=== PATIENT | male | born 1960 | race Caucasian/White ===

== ENCOUNTER 2020-10-10 11:32 | Outpatient (REF) | payer OTHER, SELFPAY ==
--- NOTE | 2020-10-10 11:36 | XR_ITS ---
EXAMINATION: XR LUMBOSACRAL SPINE CLINICAL INFORMATION: Back pain COMPARISON: None TECHNIQUE: Three views of the lumbosacral spine. FINDINGS: Bone alignment is normal. No fracture or dislocation is seen. There is mild degenerative disc disease at L3-L4. Disc spaces are otherwise normal. There is lower lumbar spine facet arthritis. There is evidence of atherosclerotic disease. The aorta appears slightly increased in AP dimension measuring 3.4 cm not accounting for magnification. XR/XR lumbar spine 2-3V IMPRESSION: Mild degenerative changes. Atherosclerotic disease and question ectasia of the abdominal aorta. This could be more accurately sized with ultrasound.
== END 2020-10-10 11:33 | disposition home or self-care (01) ==
LOC: HO.XRAY 11:32
PROVIDERS: PCP Physician Assistant; Visit Provider Internal Medicine
DX: M54.9 Dorsalgia, unspecified (principal)
CPT/HCPCS: 72100

== ENCOUNTER → 2022-05-06 10:47 | Outpatient (BNVA) | payer OTHER, SELFPAY | PROVIDERS: PCP Physician Assistant; Referring Provider Physician Assistant; Visit Provider Internal Medicine Cardiovascular Disease | DX: R42 Dizziness and giddiness (principal); I25.10 Atherosclerotic heart disease of native coronary artery without angina pectoris | CPT/HCPCS: 93005 ==

== ENCOUNTER → 2022-05-18 07:49 | Outpatient (REF) | payer OTHER, SELFPAY ==
--- NOTE | ~2022-05-18 | NM_ITS ---
Exercise Myocardial perfusion study Indication: Chest pain with prior coronary artery disease to evaluate for myocardial ischemia Technique: The patient was brought in for an exercise perfusion study on 05/18/2022 . Patient performed exercise as per Renard protocol and was injected 35 mCi of sestamibi was given intravenously one target HR was achieved. Images were obtained using the SPECT gamma camera interlaced with the gating device. Images were obtained in supine position. Resting perfusion study was performed on 05/19/2022. Patient was administered 35 mCi of sestamibi intravenously at rest. Images were then obtained in supine position. Is obtained with and without CT attenuation. Total DLP 94 mGy-cm. Images were processed with the software and compared side to side in short axis, horizontal long axis and vertical long axis views. Findings: The stress perfusion study showed non attenuated images show mildly reduced uptake in the basal inferior and inferoseptal wall of the LV myocardium. Remainder of the LV myocardium is normally perfused. Attenuation corrected images show minimal thinning of the apex of the LV myocardium. Remainder of the LV myocardium normally perfused. The gated study shows normal LV systolic function with calculated LVEF of 63%. LV cavity is normal in size. The gated study shows normal systolic wall thickening and contraction of all segments. There is no transient ischemic dilation. Resting study shows no change in perfusion pattern compared to stress perfusion study. Gating at rest reveals normal systolic wall motion with ejection fraction at 70%. The findings are consistent with normal myocardial perfusion. NM/NM cardiolite stress test Impression: 1. Normal myocardial perfusion 2. Gated LVEF is 63% 3. Transient ischemic dilatation not present Stress EKG is negative for ischemia
--- NOTE | 2022-05-18 07:52 | CA_ITS ---
Acquisition Time: 2022-05-18 08:23:00 Total Exercise Time: 00:09:15 Test Indications: Lightheadedness Medications: ALBUTEROL ASA ATORVASTATIN LOSARTAN Protocol: FABRICIO Max HR: 142 BPM 90% of Pred: 157 BPM Max BP: 202/068 mmHG Max Work Load: 10.5 METS Exercise stress test with exercise 9 min 15 sec of Fabricio protocol, without anginal symptoms, without arrythmia, with hypertensive response to exercise with max BP 202/68, without EKG changes meeting criteria for ischemia, with ST/ T wave abn V1-V2 consistent with RBBB. Nuclear images pending. Test reviewed with Dr Silvestre. Referred By: Isale Torres Overread By: JACK DELAROSA
== END ==
LOC: HO.CARD 07:49
PROVIDERS: Visit Provider Internal Medicine Cardiovascular Disease
DX: R42 Dizziness and giddiness (principal); R07.9 Chest pain, unspecified
CPT/HCPCS: 78452; 93017; A9500

== ENCOUNTER → 2022-06-02 07:25 | Outpatient (REF) | payer OTHER, SELFPAY ==
--- NOTE | 2022-06-02 07:29 | CA_ITS ---
Transthoracic Echocardiogram Patient (Last, First, Middle): Jose A Guillen F Gender: Male Date of : 1960 Age: 62 Procedure Date: 06/02/2022 Procedure Type: Transthoracic Echocardiogram Location: OP Height: 187.96 cm Weight: 99.79 kg BSA: 2.26 m2 Heart Rate: bpm BP: 105 / 68 mmHg Chicken Boner: TO Referring MD: Isael Torres MD Clinical Trial Associate: Isael Torres MD Symptoms: R42 - Dizziness and giddiness Study Quality: Adequate ECG Rhythm: Sinus Conclusions: - 1. Normal LV systolic and diastolic function 2. At least mildly dilated left atrium 3. Normal cardiac valvular Doppler next 4. Mildly dilated ascending aorta at 4.1 cm 5. No pericardial effusion Findings Left Ventricle Normal left ventricular size, thickness, and systolic function. The visually estimated ejection fraction is between 60-65%. Spectral Doppler is indicative of a normal filling pattern. Wall Motion Rest Echo Findings The basal inferior segment is hypokinetic. All other scored wall segments showed normal motion. Right Ventricle Normal right ventricular cavity size and systolic function. Atria The left atrium is mildly dilated. There is lipomatous hypertrophy of the interatrial septum. There is no evidence of interatrial shunt. The right atrium is normal in size. Aortic Valve Normal aortic valve structure and function. There is no aortic valve stenosis. There is no aortic valve regurgitation. Mitral Valve Normal mitral valve structure and function. There is trace mitral valve regurgitation. There is no mitral valve stenosis. Pulmonic Valve The pulmonic valve is likely normal. Tricuspid Valve Normal tricuspid valve structure. There is trace tricuspid valve regurgitation. The right ventricular systolic pressure is normal. The right ventricular systolic pressure is 14 mmHg. Low right atrial pressure. There is no evidence of pulmonary hypertension. Great Vessels The pulmonary artery was not well visualized. There is mild dilatation of the ascending aorta measuring 4.10 cm. Venous The inferior vena cava is collapsed, consistent with reduced intravascular volume. Pericardium/Pleural There is no evidence of pericardial effusion. Prior Study Comparison Changes noted compared to prior study dated: 08/08/2013. Ascending aorta is mildly dilated on this study Measurements 2D Linear Measurements IVSd: 1.01 0.6-0.9/0.6-1.0 cm LVIDd: 4.80 3.9-5.3/4.2-5.9 cm LVIDd Index: 2.12 2.4-3.2/2.2-3.1 cm/m2 LVIDs: 3.01 2.0-3.6 cm LVPWd: 0.93 0.7-1.1 cm LA Diam: 4.40 2.7-3.8/3.0-4.0 cm LAIDs Index: 1.95 1.5-2.3 cm/m2 LV Mass: 203.27 67-162/88-224 g LV Mass Index: 89.94 43-95/49-115 g/m2 LVOT Diam: 2.60 3.0+(-)1.3 cm 2D Systolic Function EF 4C: 63.50 >55% EF 2C: 57.00 >55% EF BiP: 60.80 >55% Mitral Valve MV Pk E: 1.10 MV PK A: 0.74 MV Decel Time: 248.00 E/A: 1.50 E'Lateral: 10.80 E'Medial: 6.96 E/E' Med: 15.80 E/E' Lat: 10.20 PHT: 73.00 MVA PHT: 3.01 Decel Darke: 4.43 Aortic Valve AoV Pk Russ: 1.42 AoV Mn Russ: 0.89 AoV VTI: 0.31 AoV Pk Grad: 8.00 Aov Mn Grad: 4.00 ANIBAL Cont.VTI: 4.56 LVOT LVOT Pk Russ: 1.19 LVOT Mn Russ: 0.80 LVOT VTI: 0.27 LVOT Pk Grad: 6.00 LVOT Mn Grad: 3.00 LVOT Diam: 2.60 LVOT Area: 5.31 Diastolic Function MV Pk E: 1.10 MV Pk A: 0.74 E/A: 1.50 E'Medial: 6.96 E/E' Med: 15.80 E' Laterial: 10.80 E/E' Lat: 10.20 Right Ventricle TAPSE (mm): 23.40 TVS' Russ: 14.70 Tricuspid Valve TR Pk Russ: 1.64 TR Pk Grad: 11.00 RA Press: 3.00 RVSP: 14.00 Great Vessels Aorta Sinus of Valsalva: 4.19 2.0-3.[address] Ridge: 3.53 1.7-3.4 cm Ao Asc: 4.10 2.1-3.4 cm Updated in Other Vendor System with Status of Final Isael Torres MD electronically signed on 06/03/2022 5:56:31 PM with status of Final
== END ==
LOC: HO.CARD 07:25
PROVIDERS: Visit Provider Internal Medicine Cardiovascular Disease
DX: R42 Dizziness and giddiness (principal)
CPT/HCPCS: 93306

== ENCOUNTER 2022-07-16 09:11 | Outpatient (REF) | payer OTHER, SELFPAY ==
[2022-07-16 09:59] LABS: Urine Cytology See Pathology rpt
[2022-07-16 10:01] LABS: Hematocrit 45.1 % (42.0-52.0); Hemoglobin 15.2 g/dl (14.0-18.0); Mean Corpuscular HGB Conc 33.7 g/dl (31.0-36.0); Mean Corpuscular Hemoglobin 31.9 pg (27.0-33.0); Mean Corpuscular Volume 94.7 fL (80.0-98.0); Mean Platelet Volume 10.6 fL (9.4-12.4); Platelet Count 158 X10*3/uL (160-400); Red Blood Count 4.76 X10*6/uL (4.60-5.80); Red Cell Distribution Width 12.2 % (11.0-16.0); White Blood Count 5.6 X10*3/uL (4.8-10.8)
[2022-07-16 10:05] LABS: Estimated Average Glucose 111 mg/dL; Hemoglobin A1c % 5.5 %
[2022-07-16 10:31] LABS: Alanine Aminotransferase 39 U/L (0-40); Albumin Level 4.2 g/dL (3.5-5.0); Alkaline Phosphatase 81 U/L (39-117); Anion Gap 16 (12-20); Aspartate Amino Transferase 36 U/L (5-37); Bilirubin Total 1.2 mg/dL (0.0-1.0); Blood Urea Nitrogen 17 mg/dL (9-16); Calcium 9.3 mg/dL (8.4-10.2); Carbon Dioxide 25 mmol/L (22-29); Chloride 103 mmol/L (96-108); Cholesterol 161 mg/dL; Estimated Glomerular Filt Rate > 60; Glucose Fasting 94 mg/dL (60-99); HDL Cholesterol 46 mg/dL; LDL Cholesterol Calculated 96 mg/dl; Potassium 4.7 mmol/L (3.3-5.1); Sodium 139 mmol/L (135-145); Total Protein 7.6 g/dL (6.5-8.0); Triglycerides 97 mg/dL
[2022-07-16 10:39] LABS: Prostate Specific Antigen Scr 0.64 ng/mL (<0.05-4.0); TSH reflex Free T4 1.27 uIU/mL (0.32-4.0)
== END 2022-07-16 09:12 | disposition home or self-care (01) ==
LOC: HO.LAB 09:11
PROVIDERS: PCP Physician Assistant; Visit Provider Physician Assistant
DX: I25.10 Atherosclerotic heart disease of native coronary artery without angina pectoris (principal); E66.9 Obesity, unspecified; R31.29 Other microscopic hematuria; R30.0 Dysuria; Z12.5 Encounter for screening for malignant neoplasm of prostate
CPT/HCPCS: 36415; 80053; 80061; 81003; 82043; 83036; 84153; 84443; 85027; 88112

== ENCOUNTER 2022-10-14 09:39 | Outpatient (REF) | payer OTHER, SELFPAY ==
[2022-10-14 12:23] LABS: Appearance Urine Clear; Color Urine Yellow; Glucose Urine UA Negative (Negative); Leukocyte Esterase Urine Negative (Negative); Nitrite Urine Negative (Negative); Specific Gravity - Urine 1.015 (1.005-1.025); Urine Blood Negative (Negative); Urine Ketones Negative (Negative); Urine Protein Negative (Neg-Trace)
[2022-10-14 12:43] LABS: Creatinine Urine 146.17 mg/dL; Microalbum/Creatinine Ratio Ur 7.5 ug/mg cr
== END 2022-10-14 09:40 | disposition home or self-care (01) ==
LOC: HO.LAB 09:39
PROVIDERS: PCP Physician Assistant; Visit Provider Physician Assistant
DX: R31.29 Other microscopic hematuria (principal); I10 Essential (primary) hypertension
CPT/HCPCS: 81003; 82043

== ENCOUNTER → 2023-04-18 08:59 | Outpatient (BNVA) | payer OTHER, SELFPAY | PROVIDERS: PCP Physician Assistant; Referring Provider Physician Assistant; Visit Provider Internal Medicine Cardiovascular Disease | DX: I25.10 Atherosclerotic heart disease of native coronary artery without angina pectoris (principal); I77.89 Other specified disorders of arteries and arterioles; R09.89 Other specified symptoms and signs involving the circulatory and respiratory systems | CPT/HCPCS: 93005 ==

== ENCOUNTER → 2023-05-31 07:36 | Outpatient (REF) | payer OTHER, SELFPAY ==
--- NOTE | 2023-05-31 07:40 | CA_ITS ---
Transthoracic Echocardiogram Patient (Last, First, Middle): Jose A Guillen F Gender: Male Date of : 1960 Age: 63 Procedure Date: 05/31/2023 Procedure Type: Transthoracic Echocardiogram Location: OP Height: 185.42 cm Weight: 108.86 kg BSA: 2.33 m2 Heart Rate: bpm BP: 148 / 100 mmHg Generation Manager: TO Referring MD: Isael Torres MD Symptoms: I77.89 - Other specified disorders of arteries and arterioles Study Quality: Fair/Contrast ECG Rhythm: Sinus Conclusions: - The left ventricular systolic function is normal. The calculated ejection fraction is 66% by biplane method. - The basal inferior segment is hypokinetic. - No obvious valvular pathology seen on this study. - There is mild dilatation of the sinuses of Valsalva measuring 4.10 cm and mild dilatation of the ascending aorta measuring 4.00 cm. Findings Procedure Information Contrast agent, definity, is being given per protocol without apparent complications. Left Ventricle Normal left ventricular cavity size. The left ventricular systolic function is normal. The calculated ejection fraction is 66% by biplane method. Abnormal diastolic function is noted. E/E prime ratio is >15, consistent with elevated filling pressures. There is moderate septal asymmetric hypertrophy. Wall Motion Rest Echo Findings The basal inferior segment is hypokinetic. Right Ventricle Mildly increased right ventricular cavity size. There is normal right ventricular systolic function. Atria The left atrium is mildly dilated. The right atrium is normal in size. Aortic Valve The aortic valve was not well visualized. There is no aortic valve stenosis. There is no aortic valve regurgitation. Mitral Valve There is mild anterior mitral leaflet thickening. There is no mitral valve regurgitation. There is no mitral valve stenosis. Pulmonic Valve The pulmonic valve is likely normal. Tricuspid Valve Normal tricuspid valve structure. There is no tricuspid valve regurgitation. There is no evidence of pulmonary hypertension. Great Vessels There is mild dilatation of the sinuses of Valsalva measuring 4.10 cm and mild dilatation of the ascending aorta measuring 4.00 cm. Venous The inferior vena cava is normal in size and collapses greater than 50% with inspiration. Pericardium/Pleural There is no evidence of pericardial effusion. Prior Study Comparison No significant change compared to prior study. Recommendations, Care & Conclusions No obvious valvular pathology seen on this study. Measurements 2D Linear Measurements IVSd: 1.30 0.6-0.9/0.6-1.0 cm LVIDd: 4.40 3.9-5.3/4.2-5.9 cm LVIDd Index: 1.89 2.4-3.2/2.2-3.1 cm/m2 LVIDs: 2.90 2.0-3.6 cm LVPWd: 1.00 0.7-1.1 cm LA Diam: 4.50 2.7-3.8/3.0-4.0 cm LAIDs Index: 1.93 1.5-2.3 cm/m2 LV Mass: 224.20 67-162/88-224 g LV Mass Index: 96.22 43-95/49-115 g/m2 LVOT Diam: 2.50 3.0+(-)1.3 cm 2D Systolic Function EF 4C: 66.00 >55% EF 2C: 65.90 >55% EF BiP: 66.00 >55% Mitral Valve MV Pk E: 0.96 MV PK A: 0.79 MV Decel Time: 205.00 E/A: 1.20 E'Lateral: 6.96 E'Medial: 5.22 E/E' Med: 18.30 E/E' Lat: 13.70 PHT: 60.00 MVA PHT: 3.67 Decel Hettinger: 4.65 Aortic Valve AoV Pk Russ: 1.33 AoV Mn Russ: 0.89 AoV VTI: 0.32 AoV Pk Grad: 7.00 Aov Mn Grad: 4.00 ANIBAL Cont.VTI: 4.18 LVOT LVOT Pk Russ: 1.16 LVOT Mn Russ: 0.73 LVOT VTI: 0.27 LVOT Pk Grad: 5.00 LVOT Mn Grad: 3.00 LVOT Diam: 2.50 LVOT Area: 4.91 Diastolic Function MV Pk E: 0.96 MV Pk A: 0.79 E/A: 1.20 E'Medial: 5.22 E/E' Med: 18.30 E' Laterial: 6.96 E/E' Lat: 13.70 Right Ventricle TAPSE (mm): 24.40 TVS' Russ: 10.20 Great Vessels Aorta Sinus of Valsalva: 4.10 2.0-3.5 cm Ao Asc: 4.00 2.1-3.4 cm Updated in Other Vendor System with Status of Final Aashish Cleary MD electronically signed on 06/01/2023 12:04:23 PM with status of Final
== END ==
LOC: HO.CARD 07:36
PROVIDERS: PCP Physician Assistant; Visit Provider Internal Medicine Cardiovascular Disease
DX: I77.89 Other specified disorders of arteries and arterioles (principal)
CPT/HCPCS: 93306; Q9957

== ENCOUNTER → 2023-05-31 07:40 | Outpatient (BNV) | payer OTHER, SELFPAY | PROVIDERS: PCP Physician Assistant; Visit Provider Internal Medicine | DX: I34.89 Other nonrheumatic mitral valve disorders (principal) | CPT/HCPCS: 93306 ==

== ENCOUNTER 2023-05-31 13:20 | Outpatient (REF) | payer OTHER, SELFPAY ==
--- NOTE | ~2023-05-31 | US_ITS ---
EXAMINATION: COLOR-FLOW DUPLEX IMAGING OF THE LEFT UPPER EXTREMITY ARTERIAL SYSTEM, WITH VELOCITY MEASUREMENTS CLINICAL INFORMATION: This is a 63-year-old man with labile blood pressure. LEFT ARM RUNOFF VELOCITIES: The left proximal subclavian artery peak systolic velocity is 111 cm/s. The waveform is biphasic. The left mid subclavian artery peak systolic velocity is 83 cm/s. The waveform is monophasic. The left distal subclavian artery peak systolic velocity is 88 cm/s. The waveform is triphasic. The left axillary artery peak systolic velocity is 80 cm/s. The waveform is triphasic. The left proximal brachial artery peak systolic velocity is 109 cm/s. The waveform is triphasic. The left mid brachial artery peak systolic velocity is 121 cm/s. The waveform is triphasic. The left distal brachial artery peak systolic velocity is 129 cm/s. The waveform is triphasic. The left mid radial artery peak systolic velocities are 116 cm/s. The waveform is triphasic. The left mid ulnar peak systolic velocity is 106 cm/s. The waveform is biphasic. US/US arterial duplex UE LT IMPRESSION: No hemodynamically significant left upper extremity arterial disease is seen.
== END 2023-05-31 13:21 | disposition home or self-care (01) ==
LOC: HO.US 13:20
PROVIDERS: PCP Physician Assistant; Visit Provider Internal Medicine Cardiovascular Disease
DX: R09.89 Other specified symptoms and signs involving the circulatory and respiratory systems (principal)
CPT/HCPCS: 93931

== ENCOUNTER 2023-08-09 09:29 | Outpatient (REF) | payer OTHER, SELFPAY ==
[2023-08-11 12:44] LABS: CRP High Sensitivity 4.9 mg/L
== END 2023-08-09 09:30 | disposition home or self-care (01) ==
LOC: HO.LAB 09:29
PROVIDERS: Internal Medicine Cardiovascular Disease; PCP Physician Assistant; Visit Provider Physician Assistant
DX: I10 Essential (primary) hypertension (principal); I25.10 Atherosclerotic heart disease of native coronary artery without angina pectoris; E78.5 Hyperlipidemia, unspecified
CPT/HCPCS: 36415; 80048; 80061; 82043; 82570; 86141

== ENCOUNTER 2023-09-05 08:26 | Outpatient (AMB) | payer OTHER, SELFPAY ==
--- NOTE | 2023-09-05 08:36 | A.OFFPC_ITS ---
Vital Signs 09/05/23 08:37 Height 6 ft 1 in Weight 233 lb 2 oz BMI 30.8 BP 134/74 Blood Pressure Location Rt brachial Position Sitting Pulse 77 Pulse Source Pulse Oximeter Pulse Oximetry (%) 96 Oxygen Delivery Method Room Air Intake Visit Reasons: f/u htn/ CAD Intake Note: Patient is here to follow up on HTN, CAD. Weave Defect Charting Clerk Required: No Commercial Drone Software Developer: Not Required per policy Accompanied by: Self / Same As Patient Allergies cats Allergy (Intermediate, Uncoded 09/05/23 08:43) sneezing, wheezing, SOB dogs Allergy (Intermediate, Uncoded 09/05/23 08:43) Sneezing, wheezing dust Allergy (Intermediate, Uncoded 09/05/23 08:43) sneezing, wheezing enviromental Allergy (Intermediate, Uncoded 09/05/23 08:43) sneezing, wheezing animals Adverse Reaction (Unknown, Uncoded 09/05/23 08:43) cats and dogs Medication List - Last Reconciled 09/05/23 by Stef Page PA-C albuterol sulfate 90 mcg/actuation 1 inh inhalation QID 30 days aspirin (Adult Low Dose Aspirin) 81 mg PO DAILY atorvastatin 80 mg PO DAILY losartan 12.5 mg (1/2 x 25 mg) PO DAILY 90 days montelukast 10 mg PO DAILY sildenafil 100 mg PO DAILY PRN 7 days Tobacco use date assessed: 09/05/23 Fall risk assessment: No Falls in past year Last assessed Fall Risk: 09/05/23 Dental Screening Dental Screen Date: 09/05/23 Did you have a dental visit in the last 12 months?: Yes Did you have a dental problem in the last 6 months where you did not have access to dental care?: No Was dental information given to patient?: Patient has dentist HPI f/u htn/ CAD HPI Details Jose A is a 63 year male here today for follow-up visit..? Patient has a past medical history significant for coronary artery disease, hypertension, asthma. .. Obesity: Patient does understand his BMI is over 30 will try to be more physically active an Adapt to better eating habits to reduce his weight. Hypertension:? Patient followed by game advisor and has been having labile blood pressures, he reports having dizziness and presyncopal episodes and checking his blood pressure reports very low readings.? His losartan has been reduced to 12.5 mg. His dizziness has been somewhat better though still apparent. He has been trying to stay well hydrated.? Upper extremity arterial ultrasounds without any significant stenosis .? He otherwise denies any chest discomfort, headaches or palpitations. .. CAD:? Patient is followed by Cardiology on annual basis.? LDL recently improved to 80. Cardiology would like it a bit lower at 60..? He denies any palpitations, chest discomforts. .. Thoracic enlargement:? Patient most recent echocardiogram showing enlarged thoracic aorta enlargement at 4.1 cm.? At this time will be followed on annual basis. .. Asthma:? He reports asthma is fairly well controlled.? He is getting allergy shots through Dr. Willson.? He reports his asthma does exacerbate during allergy seasons. He also sees an elevator operator and gets allergy injections on a weekly basis now. Has been recently started on singular which has been helpful. Laboratory Tests 07/16/22 08/09/23 08/09/23 09:27 09:55 09:55 Creatinine 0.83 Random Glucose 97 Cholesterol 141 LDL Cholesterol, C alc 96 80 PFS Medical History Microscopic hematuria Back pain Surgical History Stented coronary artery History of right knee surgery History of dental surgery Family History Father No problems noted. Mother Hepatitis C Brother Colon cancer Social History Housing: House Alcohol intake: current Alcohol intake frequency: a few times a week Alcohol type: beer and wine Patient Tobacco Use Status: Former Tobacco user Quit Date: 2001 Years Smoked: 30 +/- e-Cigarette/Vaping Use: Never Used Second Hand Smoke Exposure: No service: Yes Current occupational status: retired Cognitive needs: No Hearing needs: No Vision needs: Yes Questionnaire Thrive Questionnaire Date Thrive assessed: 02/28/23 SAEED-7 AMB Questionnaire SAEED-7 Date SAEED - 7 assessed: 02/28/23 Source: Developed by Drs. Eduard Muhammad, Cecilia Casarez, Chadwick Berg and colleagues, with an educational tal from Lorena Gaxiola. ACT Questionnaire In the past 4 weeks, how much of the time did your asthma keep you from getting as much done at work, school or at home?: None of the time During the past 4 weeks, how often have you had shortness of breath?: Not at all During the past 4 weeks, how often did your asthma symptoms wake you up at night or earlier than usual in the morning?: Not at all During the past 4 weeks, how often have you had to use your rescue inhaler or nebulizer medication?: Not at all How would you rate your asthma control during the past 4 weeks?: Completely controlled ACT Interpretation: Negative Score: 25 Review of Systems Const Denies headache(s) Eyes Denies loss of vision ENT Denies vertigo, Denies dizziness, Denies headache(s) and Denies sore throat Card Denies chest pain, Denies leg edema and Denies lightheadedness Resp Denies cough, Denies hemoptysis and Denies wheezing GI Denies abdominal pain, Denies melena, Denies constipation, Denies diarrhea and Denies vomiting Denies dysuria, Denies urinary frequency and Denies urinary urgency Musc Denies arthralgias, Denies joint swelling, Denies numbness and Denies tingling Neuro Denies Abnormal speech present, Denies behavioral changes, Denies vertigo, Denies dizziness, Denies headache(s), Denies loss of vision, Denies memory loss, Denies numbness and Denies tingling Psych Denies anxiety, Denies behavioral changes, Denies depression, Denies memory loss and Denies panic attacks Nick/Lymph Denies easy bleeding and Denies easy bruising Aller/Immun Denies wheezing Physical exam (Primary Care) Vital Signs: Last Vital Signs Pulse 77 09/05/23 08:37 BP 134/74 09/05/23 08:37 Pulse Ox 96 09/05/23 08:37 Oxygen Delivery Method Room Air 09/05/23 08:37 BMI result Body Mass Index 30.8 Tobacco/Smoking Status: Tobacco use Status Tobacco use date assessed 09/05/23 09/05/23 08:41 Patient Tobacco Use Status Former Tobacco user 09/05/23 08:41 Tobacco use type 02/28/23 08:47 e-Cigarette/Vaping Use Never Used 09/05/23 08:41 Thrive Assessment: Date of Thrive Assessment Date Thrive assessed 02/28/23 09/05/23 08:41 Const General: healthy appearing, no acute distress, alert and awake Nutritional Appearance: well nourished Orientation/consciousness: oriented to person, oriented to place and oriented to time HENMT Ears: TM's normal bilaterally General nose exam: Normal nasal mucous membranes and turbinates present Eyes Conjunctivae: conjunctivae normal Sclerae: sclerae normal Pupils: Equal, round and reactive pupils present Neck Neck: Yes no lymphadenopathy and Yes no JVD Thyroid: Thyroid normal Carotids: no bruits Resp Effort & Inspection: normal respiratory effort and not tachypneic Auscultation: no crackles, no rales, no rhonchi and no wheezes Cardio Rate: regular rate Rhythm: regular rhythm Heart sounds: no murmurs and normal S1 and S2 GI Palpation (GI): Soft to palpation, nontender, no hepatomegaly and no splenomegaly Auscultation: normal bowel sounds Skin General skin exam: no rashes or lesions noted and dry skin Neuro General: oriented to person, oriented to place and oriented to time Cranial nerves: Yes Equal, round and reactive pupils present Speech: No Abnormal speech present Gait exam (Neuro): Normal gait present Motor exam (neuro): no tremor noted Extrem Right upper extremity: full ROM Left upper extremity: full ROM Right lower extremity: full ROM; no edema Left lower extremity: full ROM; no edema Psych Mental Status: mental status grossly normal Speech and movement: Normal speech and movement present Affect: normal affect Attitude: cooperative Thought process: Normal thought process present Assessment and Plan Assessment & Plan (1) CAD (coronary artery disease): Code(s): I25.10 - Atherosclerotic heart disease of [place] coronary artery without angina pectoris Qualifiers: Associated angina: without angina Coronary Disease-Associated Artery/Lesion type: [place] artery [place] vs. transplanted heart: [place] heart Qualified Code(s): I25.10 - Atherosclerotic heart disease of [place] coronary artery without angina pectoris Plan: Continues to follow cardiology, most recent fasting lipid panel showing suboptimal LDL. Continues on high-dose statin therapy without side effect. Recent LDL at 80 Goal LDL to be below 70, optimally 60 (2) HTN (hypertension): Code(s): I10 - Essential (primary) hypertension Qualifiers: Hypertension type: primary hypertension Qualified Code(s): I10 - Essential (primary) hypertension Plan: Patient's blood pressure acceptable today in office. Has reduced his dose of losartan down to 12.5 mg. (3) Obese: Code(s): E66.9 - Obesity, unspecified Qualifiers: Body mass index: BMI 31.0-31.9 Obesity classification: adult class 1 (BMI 30 - 34.9) Obesity type: due to excess calories Serious obesity comorbidity presence: with serious comorbidity Qualified Code(s): E66.09 - Other obesity due to excess calories; Z68.31 - Body mass index [BMI] 31.0-31.9, adult Plan: Patient does understand his BMI is above 30 will continue working on being more physically active and adapting to better eating habits to reduce his weight (4) Asthma: Code(s): J45.909 - Unspecified asthma, uncomplicated Qualifiers: Asthma complication type: uncomplicated Asthma persistence: persistent Asthma severity: mild Qualified Code(s): J45.30 - Mild persistent asthma, uncomplicated Plan: Patient reports his asthma has been fairly well controlled with only p.r.n. use of albuterol inhaler. Denies any nighttime awakenings with asthma symptoms or recent exacerbations. (5) Labile blood pressure: Code(s): R09.89 - Other specified symptoms and signs involving the circulatory and respiratory systems Plan: As above has been working with Cardiology about his labile blood pressures. Has reduced his dose of losartan down to 12.5 mg and sometimes does not even take the medication if blood pressure seems low. He is symptomatic at times of low blood pressure. Has been sent for arterial ultrasound of his upper extremities which were negative.. He is trying to increase his fluids and electrolytes though feels it is not been helpful. Orders: Orders Comprehensive [place]. Panel Fast 09/05/23 I25.10 - Atherosclerotic heart disease of [place] coronary artery without angina pectoris Prostate Specific Antigen Scr 09/05/23 I25.10 - Atherosclerotic heart disease of [place] coronary artery without angina pectoris, Z12.5 - Encounter for screening for malignant neoplasm of prostate Complete Blood Count no Diff 09/05/23 R31.29 - Other microscopic hematuria Lipid Panel 09/05/23 I25.10 - Atherosclerotic heart disease of [place] coronary artery without angina pectoris Medications: Refilled sildenafil 100 mg PO DAILY 7 days PRN 7 caps 2RF sexual activity N52.9 - Male erectile dysfunction, unspecified Coding Level of Care Code Est Pt Level 4 (83807) Diagnoses Coronary artery disease involving [place] coronary artery of [place] heart without angina pectoris I25.10 Associated angina: without angina Coronary Disease-Associated Artery/Lesion type: [place] artery [place] vs. transplanted heart: [place] heart Primary hypertension I10 Hypertension type: primary hypertension Class 1 obesity due to excess calories with serious comorbidity and body mass index (BMI) of 31.0 to 31.9 in adult E66.09; Z68.31 Body mass index: BMI 31.0-31.9 Obesity classification: adult class 1 (BMI 30 - 34.9) Obesity type: due to excess calories Serious obesity comorbidity presence: with serious comorbidity Mild persistent asthma without complication J45.30 Asthma complication type: uncomplicated Asthma persistence: persistent Asthma severity: mild Labile blood pressure R09.89
[2023-09-05 08:37] VITALS: BP 134/74; PULSE 77; O2SAT 96; BMI 30.8
== END 2023-09-05 09:08 | disposition home or self-care (01) ==
LOC: HO.HMGH 08:26
PROVIDERS: PCP Physician Assistant; Visit Provider Physician Assistant
DX: I25.10 Atherosclerotic heart disease of native coronary artery without angina pectoris (principal); I10 Essential (primary) hypertension; E66.09 Other obesity due to excess calories; Z68.31 Body mass index [BMI] 31.0-31.9, adult; J45.30 Mild persistent asthma, uncomplicated; R09.89 Other specified symptoms and signs involving the circulatory and respiratory systems
CPT/HCPCS: 99214

== ENCOUNTER 2024-03-01 10:34 | Outpatient (REF) | payer OTHER, SELFPAY ==
[2024-03-01 11:10] LABS: Hematocrit 43.7 % (42.0-52.0); Hemoglobin 15.2 g/dl (14.0-18.0); Mean Corpuscular HGB Conc 34.8 g/dl (31.0-36.0); Mean Corpuscular Hemoglobin 33.4 pg (27.0-33.0); Platelet Count 160 X10*3/uL (160-400); Red Blood Count 4.55 X10*6/uL (4.60-5.80); Red Cell Distribution Width 12.3 % (11.0-16.0); White Blood Count 5.3 X10*3/uL (4.8-10.8)
[2024-03-01 11:55] LABS: Prostate Specific Antigen Scr 0.58 ng/mL (<0.05-4.0)
[2024-03-01 12:13] LABS: Alanine Aminotransferase 42 U/L (0-40); Albumin Level 4.1 g/dL (3.5-5.0); Alkaline Phosphatase 73 U/L (39-117); Anion Gap 14 (12-20); Aspartate Amino Transferase 34 U/L (5-37); Bilirubin Total 1.1 mg/dL (0.0-1.0); Blood Urea Nitrogen 17 mg/dL (9-16); Calcium 9.6 mg/dL (8.4-10.2); Carbon Dioxide 29 mmol/L (22-29); Chloride 102 mmol/L (96-108); Cholesterol 158 mg/dL (<200); Estimated Glomerular Filt Rate > 60; Glucose Fasting 98 mg/dL (60-99); HDL Cholesterol 51 mg/dL (>40); LDL Cholesterol Calculated 83 mg/dL (<100); Potassium 4.3 mmol/L (3.3-5.1); Sodium 141 mmol/L (135-145); Total Protein 7.6 g/dL (6.5-8.0); Triglycerides 124 mg/dL (<150)
== END 2024-03-01 10:35 | disposition home or self-care (01) ==
LOC: HO.LAB 10:34
PROVIDERS: PCP Physician Assistant; Visit Provider Physician Assistant
DX: I25.10 Atherosclerotic heart disease of native coronary artery without angina pectoris (principal); R31.29 Other microscopic hematuria; Z12.5 Encounter for screening for malignant neoplasm of prostate
CPT/HCPCS: 36415; 80053; 80061; 84153; 85027

== ENCOUNTER 2024-03-05 07:52 | Outpatient (AMB) | payer OTHER, SELFPAY ==
[2024-03-05 08:03] VITALS: BP 152/82; PULSE 79; O2SAT 98; BMI 32.2
--- NOTE | 2024-03-05 08:03 | MHC.PC.OV ---
Vital Signs 03/05/24 08:03 Height 6 ft 1 in Weight 244 lb BMI 32.2 BP 152/82 H Blood Pressure Location Lt brachial Position Sitting Pulse 79 Pulse Source Pulse Oximeter Pulse Oximetry (%) 98 Oxygen Delivery Method Room Air Intake Visit Reasons: Annual Exam Allergies cats Allergy (Intermediate, Uncoded 03/05/24 08:11) sneezing, wheezing, SOB dogs Allergy (Intermediate, Uncoded 03/05/24 08:11) Sneezing, wheezing dust Allergy (Intermediate, Uncoded 03/05/24 08:11) sneezing, wheezing enviromental Allergy (Intermediate, Uncoded 03/05/24 08:11) sneezing, wheezing animals Adverse Reaction (Unknown, Uncoded 03/05/24 08:11) cats and dogs Medication List - Last Reconciled 03/05/24 by Stef Page PA-C albuterol sulfate 90 mcg/actuation 1 inh inhalation QID 30 days aspirin (Adult Low Dose Aspirin) 81 mg PO DAILY atorvastatin 80 mg PO DAILY losartan 12.5 mg (1/2 x 25 mg) PO DAILY 90 days montelukast 10 mg PO DAILY sildenafil 100 mg PO DAILY PRN 7 days Tobacco use date assessed: 03/05/24 Fall risk assessment: No Falls in past year Last assessed Fall Risk: 03/05/24 Dental Screening Dental Screen Date: 03/05/24 Did you have a dental visit in the last 12 months?: Yes Did you have a dental problem in the last 6 months where you did not have access to dental care?: No Was dental information given to patient?: Patient has dentist HPI Annual Exam HPI Details Jose A is a 63 year male here today for routine annual physical.? Patient has a past medical history significant for coronary artery disease, hypertension, asthma. .. Obesity: Patient does understand his BMI is over 30 will try to be more physically active an Adapt to better eating habits to reduce his weight. Hypertension:? Patient followed by automobile engine assembler and has been having labile blood pressures, he reports having dizziness and presyncopal episodes and checking his blood pressure reports very low readings.? His losartan has been reduced to 12.5 mg. His dizziness has been somewhat better though still apparent. He has been trying to stay well hydrated.? Upper extremity arterial ultrasounds without any significant stenosis .? He otherwise denies any chest discomfort, headaches or palpitations. .. CAD:? Patient is followed by Cardiology on annual basis.? LDL recently at 83. Cardiology would like it a bit lower at 60..? He denies any palpitations, chest discomforts. .. Thoracic enlargement:? Patient most recent echocardiogram showing enlarged thoracic aorta enlargement at 4.1 cm.? At this time will be followed on annual basis. .. Asthma:? He reports asthma is fairly well controlled.? He is getting allergy shots now through new provider.? He reports his asthma does exacerbate during allergy seasons. He also sees an compressor repairer and gets allergy injections on a weekly basis now. Has been recently started on singular which has been helpful. Colonoscopy: Done in 2020, repeat 5 years Vaccines: Up-to-date with COVID vaccine, flu shot, tetanus vaccine, considering shingles vaccine and pneumonia vaccine. Laboratory Tests 06/01/19 07/16/22 08/09/23 06:09 09:27 09:55 RBC Creatinine ALT 42 H 39 Cholesterol 141 LDL Cholesterol, C alc 80 PSA Screen 03/01/24 10:47 RBC 4.55 L Creatinine 0.99 ALT 42 H Cholesterol 158 LDL Cholesterol, C alc 83 PSA Screen 0.58 PFS Medical History Microscopic hematuria Back pain Surgical History Stented coronary artery History of right knee surgery History of dental surgery Family History Father No problems noted. Mother Hepatitis C Brother Colon cancer Sister Rectal polyp Social History Housing: House Alcohol intake: current Alcohol intake frequency: a few times a week Alcohol type: beer and wine Patient Tobacco Use Status: Former Tobacco user Quit Date: 2001 Tobacco use type: Cigarette Years Smoked: 30 +/- e-Cigarette/Vaping Use: Never Used Second Hand Smoke Exposure: No service: Yes Current occupational status: retired Cognitive needs: No Hearing needs: No Vision needs: Yes Questionnaire PHQ-9 Over the last 2 weeks, how often have you been bothered by any of the following problems? 1. Little interest or pleasure in doing things: not at all 2. Feeling down, depressed, or hopeless: not at all 3. Trouble falling or staying asleep, or sleeping too much: not at all 4. Feeling tired or having little energy: not at all 5. Poor appetite or overeating: not at all 6. Feeling bad about yourself - or that you are a failure or have let yourself or your family down: not at all 7. Trouble concentrating on things, such as reading the newspaper or watching television: not at all 8. Moving or speaking so slowly that other people could have noticed. Or the opposite - being so fidgety or restless that you have been moving around a lot more than usual: not at all 9. Thoughts that you would be better off or of hurting yourself in some way: not at all Total score: 0 Depression Screening Interpretation: Negative Depression Screening Done: Yes [id number] - PHQ-9 Billing: Yes Source: Developed by Drs. Eduard Muhammad, Cecilia Casarez, Chadwick Berg and colleagues, with an educational tal from [employer]. Thrive Questionnaire Date Thrive assessed: 03/05/24 I am a: Patient What is your living situation today?: I have a steady place to live Within the past 12 months, did the food you bought not last and you didn't have the money to get more?: Never true Within the past 12 months, did you worry whether your food would run out before you got money to buy more?: Never true Do you have trouble paying for medicines?: No Do you have trouble getting transportation to medical appointments?: No Do you have trouble paying your heating and electricity bill?: No Do you have trouble taking care of your child, family member or friend?: No Do you have trouble with day-to-day activities such as bathing, preparing meals, shopping, managing finances, etc.?: No Are you currently unemployed and looking for a job?: No Are you interested in more education?: No Currently or been in a relationship where the following occur: no concerns reported THRIVE Score: 0 AUDIT C Alcohol Use Questionnaire (AUDIT-C) 1. How often do you have a drink containing alcohol?: 2-3 times a week 2. How many drinks containing alcohol do you have on a typical day when you are drinking?: 1 or 2 3. How often do you have six or more drinks on one occasion?: Never Total Score: 3 SAEED-7 AMB Questionnaire SAEED-7 Date SAEED - 7 assessed: 03/05/24 Feeling nervous, anxious, or on edge: 0 = Not at all Not being able to stop or control worryin = Not at all Worrying too much about different things: 0 = Not at all Trouble relaxin = Not at all Being so restless that it is hard to sit still: 0 = Not at all Becoming easily annoyed or irritable: 0 = Not at all Feeling afraid as if something awful might happen: 0 = Not at all Total SAEED-7 score (0-4 normal; 5-9 mild; 10-14 moderate; 15-21 severe): 0 Source: Developed by Drs. Eduard Muhammad, Cecilia Casarez, Chadwick Berg and colleagues, with an educational tal from [employer]. ACT Questionnaire In the past 4 weeks, how much of the time did your asthma keep you from getting as much done at work, school or at home?: None of the time During the past 4 weeks, how often have you had shortness of breath?: Not at all During the past 4 weeks, how often did your asthma symptoms wake you up at night or earlier than usual in the morning?: Not at all During the past 4 weeks, how often have you had to use your rescue inhaler or nebulizer medication?: Not at all How would you rate your asthma control during the past 4 weeks?: Completely controlled ACT Interpretation: Negative Score: 25 Review of Systems Const Denies body aches, Denies chills, Denies excessive sweating, Denies fatigue, Denies fever(s) and Denies headache(s) Eyes Denies blurry vision ENT Denies dysphagia, Denies vertigo, Denies dizziness, Denies headache(s), Denies hearing loss and Denies tinnitus Card Denies chest pain, Denies chest pain with activity, Denies syncope, Denies irregular heart rhythm and Denies dyspnea Resp Denies chest congestion, Denies cough, Denies hemoptysis, Denies dyspnea and Denies wheezing GI Denies abdominal pain, Denies melena, Denies hematochezia, Denies coffee ground emesis, Denies dysphagia, Denies diarrhea, Denies nausea and Denies vomiting Denies difficulty urinating, Denies dysuria, Denies urinary frequency, Denies urinary hesitancy and Denies urinary urgency Musc Denies arthralgias, Denies limited range of motion, Denies muscle cramps and Denies muscle weakness Skin/Breast Denies rash and Denies skin ulcer Neuro Denies Abnormal speech present, Denies confusion, Denies vertigo, Denies dizziness, Denies syncope, Denies headache(s), Denies memory loss and Denies seizure-like activity Psych Denies anxiety, Denies confusion, Denies depression, Denies memory loss, Denies panic attacks and Denies paranoia Endo Denies excessive sweating, Denies fatigue, Denies flushing, Denies polydipsia and Denies polyuria Aller/Immun Denies wheezing Physical exam (Primary Care) Vital Signs: Last Vital Signs Pulse 79 03/05/24 08:03 BP 152/82 H 03/05/24 08:03 Pulse Ox 98 03/05/24 08:03 Oxygen Delivery Method Room Air 03/05/24 08:03 BMI result Body Mass Index 32.2 BMI Assessment/Plan discussion: High BMI High, discussed plan: lifestyle, weight reduction, dietary and physical activity Tobacco/Smoking Status: Tobacco use Status Tobacco use date assessed 03/05/24 03/05/24 08:08 Patient Tobacco Use Status Former Tobacco user 03/05/24 08:08 Tobacco use type Cigarette 03/05/24 08:08 e-Cigarette/Vaping Use Never Used 03/05/24 08:08 PHQ-9: PHQ-9 Score PHQ-9: Total score 0 03/05/24 08:08 Depression Screening Interpretation: Negative Thrive Assessment: Date of Thrive Assessment Date Thrive assessed 03/05/24 03/05/24 08:08 Currently or been in a relationship where the following occur: no concerns reported Const General: cooperative, comfortable, no acute distress, alert and awake; No confusion Orientation/consciousness: oriented to person, oriented to place, patient oriented x3 and No confusion HENMT Head: Yes normocephalic Ears: external ears normal and TM's normal bilaterally Face and sinus: No sinus tenderness Mouth: Normal oral and palatal mucosa present and tongue normal Teeth and gingiva: dentition normal and gingiva normal Throat: Yes posterior oropharynx normal, Yes tonsils normal and Yes uvula midline Eyes Conjunctivae: conjunctivae normal Sclerae: sclerae normal Pupils: Equal, round and reactive pupils present EOM: EOMs intact bilaterally Direct Ophthalmoscopy: No no photophobia Neck Neck: Yes no lymphadenopathy, No tender and Yes no JVD Thyroid: Thyroid normal Carotids: no bruits Chest Chest palpation & inspection: no tenderness Resp Effort & Inspection: normal respiratory effort, no audible wheezes, not labored and no stridor Auscultation: no crackles, no rales, no rhonchi and no wheezes Cardio Jugular venous distension: no JVD Rate: regular rate, not bradycardic and not tachycardic Rhythm: regular rhythm Bruits: no carotid bruits Peripheral pulses: Peripheral pulses 2+ throughout GI Inspection: Yes normal to inspection, No abdominal wall ecchymosis and No visible herniation Palpation (GI): Soft to palpation, nontender, no guarding, not rigid and No hepatosplenomegaly present Auscultation: normoactive bowel sounds General: Yes no CVA tenderness Back/Spine/Pelvis Back: no CVA tenderness and No back tenderness Cervical Spine: cervical ROM normal Thoracic/Lumbar Spine: thoracic and lumbar spine normal to inspection, straight leg raise negative bilaterally, No thoraco-lumbar ROM limited and No lumbar spinal tenderness Skin Lesions: no lesions Rashes: no rashes Wounds: no wounds Neuro General: oriented to person, oriented to place, patient oriented x3, CN's II-XI intact bilaterally and No confusion Cranial nerves: Yes Equal, round and reactive pupils present and Yes Normal accommodation reflex present Cognition (Neuro): normal cognition Speech: No Abnormal speech present Gait exam (Neuro): Normal gait present Motor exam (neuro): 5/5 motor strength present throughout Extrem Right upper extremity: full ROM; no cyanosis Left upper extremity: full ROM; no cyanosis Right lower extremity: no edema Left lower extremity: no edema Psych Appearance: grossly normal Mental Status: mental status grossly normal Affect: normal affect Attitude: cooperative Thought process: Normal thought process present Assessment and Plan Assessment & Plan (1) Annual physical exam: Code(s): Z00.00 - Encounter for general adult medical examination without abnormal findings (2) CAD (coronary artery disease): Code(s): I25.10 - Atherosclerotic heart disease of [place] coronary artery without angina pectoris Qualifiers: Coronary Disease-Associated Artery/Lesion type: [place] artery [place] vs. transplanted heart: [place] heart Associated angina: without angina Qualified Code(s): I25.10 - Atherosclerotic heart disease of [place] coronary artery without angina pectoris Plan: Continues to follow cardiology, most recent fasting lipid panel showing suboptimal LDL. Continues on high-dose statin therapy without side effect. Recent LDL at 83 Goal LDL to be below 70, optimally 60 (3) HTN (hypertension): Code(s): I10 - Essential (primary) hypertension Qualifiers: Hypertension type: primary hypertension Qualified Code(s): I10 - Essential (primary) hypertension Plan: Patient's blood pressure slightly elevated today in office. Has also gained weight since last office visit as well. Has labile blood pressure readings Has reduced his dose of losartan down to 12.5 mg. Goal blood pressure to be below 140/90 (4) Obese: Code(s): E66.9 - Obesity, unspecified Qualifiers: Obesity type: due to excess calories Obesity classification: adult class 1 (BMI 30 - 34.9) Serious obesity comorbidity presence: with serious comorbidity Body mass index: BMI 31.0-31.9 Qualified Code(s): E66.09 - Other obesity due to excess calories; Z68.31 - Body mass index [BMI] 31.0-31.9, adult Plan: Patient does understand his BMI is above 30 will continue working on being more physically active and adapting to better eating habits to reduce his weight (5) Asthma: Code(s): J45.909 - Unspecified asthma, uncomplicated Qualifiers: Asthma severity: mild Asthma persistence: persistent Asthma complication type: uncomplicated Qualified Code(s): J45.30 - Mild persistent asthma, uncomplicated Plan: Patient reports his asthma has been fairly well controlled with only p.r.n. use of albuterol inhaler. Denies any nighttime awakenings with asthma symptoms or recent exacerbations. (6) Labile blood pressure: Code(s): R09.89 - Other specified symptoms and signs involving the circulatory and respiratory systems Plan: As above has been working with Cardiology about his labile blood pressures. Has reduced his dose of losartan down to 12.5 mg and sometimes does not even take the medication if blood pressure seems low. He is symptomatic at times of low blood pressure. Has been sent for arterial ultrasound of his upper extremities which were negative.. He is trying to increase his fluids and electrolytes though feels it is not been helpful. (7) GERD (gastroesophageal reflux disease): Code(s): K21.9 - Gastro-esophageal reflux disease without esophagitis Qualifiers: Esophagitis presence: without esophagitis Qualified Code(s): K21.9 - Gastro-esophageal reflux disease without esophagitis Plan: Patient does report intermittent episodes of heartburn that are well controlled with PPI therapy. Will give him a script for PPI therapy to use on intermittent basis. (8) Enlarged thoracic aorta: Code(s): I77.89 - Other specified disorders of arteries and arterioles Plan: Followed by cardiology . Continues active surveillance on his thoracic aortic aneurysm Orders: Orders Microalbumin, Random (w Creat) Today I10 - Essential (primary) hypertension Lipid Panel 6 Months I25.10 - Atherosclerotic heart disease of [place] coronary artery without angina pectoris Comprehensive [place]. Panel Fast 6 Months I25.10 - Atherosclerotic heart disease of [place] coronary artery without angina pectoris Complete Blood Count no Diff 6 Months I25.10 - Atherosclerotic heart disease of [place] coronary artery without angina pectoris Microalbumin, Random (w Creat) 6 Months I10 - Essential (primary) hypertension Medications: New omeprazole 20 mg PO DAILY 90 days 90 caps 0RF K21.9 - Gastro-esophageal reflux disease without esophagitis Patient Instructions: Goals: Blood pressure to remain below 140/90 and above 100/60 Barriers: Adherence to physical activity and healthy eating habits. Coding Level of Care Code Est Pt Prev Care 40-64y(67169) Diagnoses Annual physical exam Z00.00 Coronary artery disease involving [place] coronary artery of [place] heart without angina pectoris I25.10 Coronary Disease-Associated Artery/Lesion type: [place] artery [place] vs. transplanted heart: [place] heart Associated angina: without angina Primary hypertension I10 Hypertension type: primary hypertension Class 1 obesity due to excess calories with serious comorbidity and body mass index (BMI) of 31.0 to 31.9 in adult E66.09; Z68.31 Obesity type: due to excess calories Obesity classification: adult class 1 (BMI 30 - 34.9) Serious obesity comorbidity presence: with serious comorbidity Body mass index: BMI 31.0-31.9 Mild persistent asthma without complication J45.30 Asthma severity: mild Asthma persistence: persistent Asthma complication type: uncomplicated Labile blood pressure R09.89 Gastroesophageal reflux disease without esophagitis K21.9 Esophagitis presence: without esophagitis Enlarged thoracic aorta I77.89
== END 2024-03-05 08:39 | disposition home or self-care (01) ==
PROVIDERS: Visit Provider Physician Assistant
DX: Z00.00 Encounter for general adult medical examination without abnormal findings (principal); E66.09 Other obesity due to excess calories; I77.89 Other specified disorders of arteries and arterioles; Z68.31 Body mass index [BMI] 31.0-31.9, adult; I25.10 Atherosclerotic heart disease of native coronary artery without angina pectoris; J45.30 Mild persistent asthma, uncomplicated; I10 Essential (primary) hypertension; R09.89 Other specified symptoms and signs involving the circulatory and respiratory systems; K21.9 Gastro-esophageal reflux disease without esophagitis
CPT/HCPCS: 99396

== ENCOUNTER 2024-03-05 08:58 | Outpatient (REF) | payer OTHER, SELFPAY ==
[2024-03-05 10:07] LABS: Creatinine Urine 198.07 mg/dL
== END 2024-03-05 08:59 | disposition home or self-care (01) ==
LOC: HO.LAB 08:58
PROVIDERS: PCP Physician Assistant; Visit Provider Physician Assistant
DX: I10 Essential (primary) hypertension (principal)
CPT/HCPCS: 82043; 82570

== ENCOUNTER 2024-04-11 10:37 | Outpatient (AMB) | payer OTHER, SELFPAY ==
[2024-04-11 10:44] VITALS: BP 160/84; PULSE 84; BMI 32.0
--- NOTE | 2024-04-11 10:44 | A.OFFVIS_ITS ---
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 Allergies cats Allergy (Intermediate, Uncoded 03/05/24 08:11) sneezing, wheezing, SOB dogs Allergy (Intermediate, Uncoded 03/05/24 08:11) Sneezing, wheezing dust Allergy (Intermediate, Uncoded 03/05/24 08:11) sneezing, wheezing enviromental Allergy (Intermediate, Uncoded 03/05/24 08:11) sneezing, wheezing animals Adverse Reaction (Unknown, Uncoded 03/05/24 08:11) cats and dogs Medication List - Last Reconciled 04/11/24 by Isael Torres MD albuterol sulfate 90 mcg/actuation 1 inh inhalation QID 30 days aspirin (Adult Low Dose Aspirin) 81 mg PO DAILY atorvastatin 80 mg PO DAILY losartan 12.5 mg (1/2 x 25 mg) PO DAILY 90 days montelukast 10 mg PO DAILY PRN omeprazole 20 mg PO DAILY 90 days sildenafil 100 mg PO DAILY PRN 7 days HPI Comments Details: Jose A comes for follow-up. He has been doing well overall except for episodes of low blood pressure and feels symptoms of lightheadedness, generally not feeling well and black out vision. He usually knows that his blood pressure is below 100 at that point time and usually takes it easy and drinks more water and salt intake at that time. Otherwise his blood pressure is generally running in 110-130 range. He has not had any super high blood pressure readings. Still goes for walk for about 40 minutes, his knee is limiting him currently. He is gained some weight. He does not have any exertional chest pain or shortness of breath. His last LDL in the 80s. He denies any orthopnea, PND, leg edema. [facility] Medical History Microscopic hematuria Back pain Surgical History Stented coronary artery History of right knee surgery History of dental surgery Family History Father No problems noted. Mother Hepatitis C Brother Colon cancer Sister Rectal polyp Social History Housing: House Alcohol intake: current Alcohol intake frequency: a few times a week Alcohol type: beer and wine Patient Tobacco Use Status: Former Tobacco user Tobacco use type: Cigarette Years Smoked: 30 +/- e-Cigarette/Vaping Use: Never Used Second Hand Smoke Exposure: No service: Yes Current occupational status: retired Cognitive needs: No Hearing needs: No Vision needs: Yes Review of Systems Const Denies weakness ENT Reports dizziness Card Denies chest pain, Denies chest pain at rest, Denies chest pain with activity, Denies syncope, Denies rapid heart rate, Denies pedal edema, Denies edema, Denies leg edema, Reports lightheadedness, Denies palpitations, Denies dyspnea, Denies dyspnea on exertion and Denies orthopnea Resp Denies cough, Denies dyspnea and Denies dyspnea on exertion GI Denies hematochezia and Denies change in stool character Musc Denies abnormal gait, Reports limited range of motion, Reports muscle cramps, Denies muscle weakness, Denies numbness, Denies radiating pain into limb, Denies stiffness and Denies tingling Neuro Denies abnormal gait, Reports dizziness, Denies syncope, Denies numbness, Denies tingling and Denies weakness Endo Denies palpitations Physical Exam Vital Signs: Last Vital Signs Pulse 84 04/11/24 10:44 BP 160/84 H 04/11/24 10:44 BMI result Body Mass Index 32.0 Const General: cooperative, comfortable, no acute distress, alert, awake and Physically active Nutritional Appearance: obese Orientation/consciousness: patient oriented x3 Limitations: no limitations Neck Neck: Yes trachea midline, Yes supple and Yes no JVD Resp Effort & Inspection: normal respiratory effort Auscultation: clear to auscultation bilaterally Cardio Jugular venous distension: no JVD Palpation: normal PMI Rate: regular rate Rhythm: regular rhythm Heart sounds: S1 normal heart sound present, S2 normal heart sound present, no click, no gallops, no murmurs and no rubs GI Auscultation: normal bowel sounds Skin General skin exam: no rashes or lesions noted Neuro General: patient oriented x3 and no focal motor deficits Extrem General: Yes no clubbing, cyanosis or edema Office Procedures EKG Details: EKG shows normal sinus rhythm with PACs with right bundle-branch block and inferior Q-waves [id number], Complete Assessment & Plan Assessment & Plan (1) CAD (coronary artery disease): Code(s): I25.10 - Atherosclerotic heart disease of [place] coronary artery without angina pectoris Category: Medical Qualifiers: Coronary Disease-Associated Artery/Lesion type: [place] artery [place] vs. transplanted heart: [place] heart Associated angina: without angina Qualified Code(s): I25.10 - Atherosclerotic heart disease of [place] coronary artery without angina pectoris Plan: CAD with remote stenting of the circumflex artery without any recurrent symptoms suggestive angina. Overall doing well from cardiac perspective. Has inferior wall motion abnormality on echocardiogram. Continue aggressive medical therapy. Continue low-dose aspirin therapy for life. Continue high-intensity statin therapy. LDL is not well optimized and would add ezetimibe 10 mg to his regimen. Continue participate in weight loss program regular physical activity as well as dietary modification. Understands and agrees. Follow-up lipid panel in 3 months time. Continue aggressive blood pressure control. (2) Enlarged thoracic aorta: Code(s): I77.89 - Other specified disorders of arteries and arterioles Category: Medical Plan: Mildly enlarged thoracic aorta. Follow-up echocardiogram in 3 months time. Continue aggressive risk factor modification with lipid modifications above. No surgical interventions required if stable in size. (3) Labile blood pressure: Code(s): R09.89 - Other specified symptoms and signs involving the circulatory and respiratory systems Category: Medical Plan: Labile blood pressure most likely due to diffuse atherosclerotic disease. This could be difficult to treat. Discussed orthostatic precautions. Advise to increase significant water intake. Advised to monitor blood pressures different times today. High salt intake when he has low blood pressures. Advised to take sitting or supine position when he symptomatic. Continue low-dose losartan therapy can not further up titrated. Will follow up in the clinic in 1 year's time, sooner p.r.n.. Thank you for allowing me to partake in his care Coding Level of Care Code Est Pt Level 4 (81432) Diagnoses Coronary artery disease involving [place] coronary artery of [place] heart without angina pectoris I25.10 Coronary Disease-Associated Artery/Lesion type: [place] artery [place] vs. transplanted heart: [place] heart Associated angina: without angina Enlarged thoracic aorta I77.89 Labile blood pressure R09.89 CPT Codes EKG - CPT: 42347-[id number], Complete ([id number])
== END 2024-04-11 11:14 | disposition home or self-care (01) ==
PROVIDERS: PCP Physician Assistant; Visit Provider Internal Medicine Cardiovascular Disease
DX: I25.10 Atherosclerotic heart disease of native coronary artery without angina pectoris (principal); I77.89 Other specified disorders of arteries and arterioles; R09.89 Other specified symptoms and signs involving the circulatory and respiratory systems
CPT/HCPCS: 93010; 99214

== ENCOUNTER → 2024-04-11 10:37 | Outpatient (BNVA) | payer OTHER, SELFPAY | PROVIDERS: PCP Physician Assistant; Visit Provider Internal Medicine Cardiovascular Disease | DX: I25.10 Atherosclerotic heart disease of native coronary artery without angina pectoris (principal); I77.89 Other specified disorders of arteries and arterioles; R09.89 Other specified symptoms and signs involving the circulatory and respiratory systems; Z79.82 Long term (current) use of aspirin; Z79.899 Other long term (current) drug therapy | CPT/HCPCS: 93005 ==

== ENCOUNTER → 2024-07-12 09:53 | Outpatient (REF) | payer MEDICARE, SELFPAY ==
--- NOTE | 2024-07-12 10:01 | CA_ITS ---
Transthoracic Echocardiogram Amended Patient (Last, First, Middle): Jose A Guillen F Gender: Male Date of : 1960 Age: 64 Procedure Date: 07/12/2024 Procedure Type: Transthoracic Echocardiogram Location: OP Height: 185. cm Weight: 106.6 kg BSA: 2.30 m2 Heart Rate: 67 bpm BP: 148 / 85 mmHg Cook Cold Meat: CHANDRAKANT Referring MD: Isael Torres MD Professional Nurse: Isael Torres MD Symptoms: ascending aortic enlargement, CAD Study Quality: Fair ECG Rhythm: Sinus Conclusions: - 1. Normal LV ejection fraction of 60 65% with impaired relaxation filling pattern 2. Normal cardiac valvular Dopplers 3. Mildly dilated ascending aorta at 4 cm Findings Left Ventricle Normal left ventricular size, thickness, and systolic function. The visually estimated ejection fraction is between 60-65%. Spectral Doppler is indicative of an impaired relaxation filling pattern. E/E prime ratio is between 8 and 15 consistent with indeterminate filling pressures. Peak GLS is -16.1%, mildly reduced. Right Ventricle Normal right ventricular cavity size and systolic function. Atria The left atrium is likely dilated. Interatrial shunt cannot be excluded. The right atrium is normal in size. Aortic Valve Normal aortic valve structure and function. There is no aortic valve stenosis. There is no aortic valve regurgitation. Mitral Valve Normal mitral valve structure and function. There is trace mitral valve regurgitation. There is no mitral valve stenosis. Pulmonic Valve The pulmonic valve is likely normal. Tricuspid Valve Likely normal tricuspid valve structure and function. Tricuspid regurgitation envelope is inadequate for calculation of right ventricular systolic pressure. Normal right atrial pressure. Great Vessels The pulmonary artery was not well visualized. There is mild dilatation of the ascending aorta measuring 4.00 cm. Venous The inferior vena cava is normal in size. Pericardium/Pleural There is no evidence of pericardial effusion. Prior Study Comparison No significant change compared to prior study dated: 05/31/2023. Measurements 2D Linear Measurements IVSd: 0.95 0.6-0.9/0.6-1.0 cm LVIDd: 4.82 3.9-5.3/4.2-5.9 cm LVIDd Index: 2.10 2.4-3.2/2.2-3.1 cm/m2 LVIDs: 2.49 2.0-3.6 cm LVPWd: 1.01 0.7-1.1 cm LA Diam: 4.40 2.7-3.8/3.0-4.0 cm LAIDs Index: 1.91 1.5-2.3 cm/m2 LV Mass: 208.25 67-162/88-224 g LV Mass Index: 90.54 43-95/49-115 g/m2 LVOT Diam: 2.50 3.0+(-)1.3 cm 2D Volumes LA Vol: 24.20 2D Systolic Function EF 4C: 53.90 >55% EF 2C: 66.90 >55% EF BiP: 60.80 >55% Mitral Valve MV Pk E: 0.73 MV PK A: 0.90 MV Decel Time: 349.00 E/A: 0.80 E'Lateral: 6.85 E'Medial: 6.31 E/E' Med: 11.60 E/E' Lat: 10.70 PHT: 95.00 MVA PHT: 2.32 Decel [place]: 2.29 Aortic Valve AoV Pk Russ: 1.32 AoV Mn Russ: 0.88 AoV VTI: 0.26 AoV Pk Grad: 7.00 Aov Mn Grad: 4.00 ANIBAL Cont.VTI: 4.56 LVOT LVOT Pk Russ: 1.22 LVOT Mn Russ: 0.79 LVOT VTI: 0.25 LVOT Pk Grad: 6.00 LVOT Mn Grad: 3.00 LVOT Diam: 2.50 LVOT Area: 4.91 Diastolic Function MV Pk E: 0.73 MV Pk A: 0.90 E/A: 0.80 E'Medial: 6.31 E/E' Med: 11.60 E' Laterial: 6.85 E/E' Lat: 10.70 Right Ventricle TAPSE (mm): 21.90 TVS' Russ: 13.70 Great Vessels Aorta Sinus of Valsalva: 4.00 2.0-3.5 cm Ao Asc: 4.00 2.1-3.4 cm Pulmonary Valve PV Pk Russ: 1.21 Peak PV Grad: 6.00 Updated in Other Vendor System with Status of Final Isael Torres MD electronically signed on 07/12/2024 12:42:55 PM with status of Final
== END ==
LOC: HO.CARD 09:53
PROVIDERS: PCP Physician Assistant; Visit Provider Internal Medicine Cardiovascular Disease
DX: I77.89 Other specified disorders of arteries and arterioles (principal)
CPT/HCPCS: 93306; 93356

== ENCOUNTER → 2024-07-12 10:01 | Outpatient (BNV) | payer MEDICARE, SELFPAY | PROVIDERS: PCP Physician Assistant; Visit Provider Internal Medicine Cardiovascular Disease | DX: I34.0 Nonrheumatic mitral (valve) insufficiency (principal); R93.1 Abnormal findings on diagnostic imaging of heart and coronary circulation | CPT/HCPCS: 93306; 93356 ==

== ENCOUNTER 2024-09-06 08:32 | Outpatient (AMB) | payer MEDICARE, SELFPAY ==
--- NOTE | 2024-09-06 08:40 | A.OFFPC_ITS ---
Vital Signs 09/06/24 08:41 09/06/24 08:45 Height 6 ft 1 in Weight 249 lb 2 oz BMI 32.9 BP 150/100 H 152/90 H Blood Pressure Location Lt brachial Rt brachial Position Sitting Sitting Pulse 84 Pulse Source Pulse Oximeter Pulse Oximetry (%) 98 Oxygen Delivery Method Room Air Intake Visit Reasons: f/u HTN/ HLD Intake Note: Patient is here to follow up on HTN, HLD. Core Rescuer Required: No Sewer And Inspector: Not Required per policy Accompanied by: Self / Same As Patient Allergies cats Allergy (Intermediate, Uncoded 09/06/24 08:46) sneezing, wheezing, SOB dogs Allergy (Intermediate, Uncoded 09/06/24 08:46) Sneezing, wheezing dust Allergy (Intermediate, Uncoded 09/06/24 08:46) sneezing, wheezing enviromental Allergy (Intermediate, Uncoded 09/06/24 08:46) sneezing, wheezing animals Adverse Reaction (Unknown, Uncoded 09/06/24 08:46) cats and dogs Medication List - Last Reconciled 09/06/24 by Stef Page PA-C albuterol sulfate 90 mcg/actuation 1 inh inhalation QID 30 days aspirin (Adult Low Dose Aspirin) 81 mg PO DAILY atorvastatin 80 mg PO DAILY losartan 12.5 mg (1/2 x 25 mg) PO DAILY 90 days montelukast 10 mg PO DAILY PRN omeprazole 20 mg PO DAILY 90 days sildenafil 100 mg PO DAILY PRN 7 days Tobacco use date assessed: 09/06/24 Fall risk assessment: No Falls in past year Last assessed Fall Risk: 09/06/24 Dental Screening Dental Screen Date: 03/05/24 HPI f/u HTN/ HLD HPI Details Jose A is a 64 year male here today for a follow-up visit.? Patient has a past medical history significant for coronary artery disease, hypertension, asthma. Unfortunately has not gotten labs before today's appointment. .. Obesity: Patient does understand his BMI is over 30 will try to be more physically active an Adapt to better eating habits to reduce his weight. Hypertension:? Patient followed by cuff setter overlock and has been having labile blood pressures, he reports having dizziness and presyncopal episodes and checking his blood pressure reports very low readings.? Has been followed by cuff setter overlock for this this is due to his atherosclerotic disease. His losartan has been reduced to 12.5 mg. His dizziness has been somewhat better though still apparent. He has been trying to stay well hydrated.? Upper extremity arterial ultrasounds without any significant stenosis .? He otherwise denies any chest discomfort, headaches or palpitations. .. CAD:? Patient is followed by Cardiology on annual basis.? LDL recently at 83. Cardiology would like it a bit lower at 60..? He denies any palpitations, chest discomforts. .. Thoracic enlargement:? Patient most recent echocardiogram showing enlarged thoracic aorta enlargement at 4.1 cm.? At this time will be followed on annual basis. .. Asthma:? He reports asthma is fairly well controlled.? He is getting allergy shots now through new provider.? He reports his asthma does exacerbate during allergy seasons. He also sees an health and wellness instructor and gets allergy injections on a weekly basis now. Has been recently started on singular which has been helpful. [facility] Medical History Microscopic hematuria Back pain Surgical History Stented coronary artery History of right knee surgery History of dental surgery Family History Father No problems noted. Mother Hepatitis C Brother Colon cancer Sister Rectal polyp Social History Housing: House Alcohol intake: current Alcohol intake frequency: a few times a week Alcohol type: beer and wine Patient Tobacco Use Status: Former Tobacco user Tobacco use type: Cigarette Years Smoked: 30 +/- e-Cigarette/Vaping Use: Never Used Second Hand Smoke Exposure: No service: Yes Current occupational status: retired Cognitive needs: No Hearing needs: No Vision needs: Yes Questionnaire Thrive Questionnaire Date Thrive assessed: 03/05/24 AUDIT C Alcohol Use Questionnaire (AUDIT-C) 2. How many drinks containing alcohol do you have on a typical day when you are drinking?: 1 or 2 3. How often do you have six or more drinks on one occasion?: Less than monthly Total Score: 1 SAEED-7 AMB Questionnaire SAEED-7 Date SAEED - 7 assessed: 03/05/24 Source: Developed by Cecilia Leong B.W. Hermelindo, Chadwick Berg and colleagues, with an educational tal from [employer]. Review of Systems Const Denies headache(s) Eyes Denies loss of vision ENT Denies vertigo, Denies dizziness, Denies headache(s) and Denies sore throat Card Denies chest pain, Denies leg edema and Denies lightheadedness Resp Denies cough, Denies hemoptysis and Denies wheezing GI Denies abdominal pain, Denies melena, Denies constipation, Denies diarrhea and Denies vomiting Denies dysuria, Denies urinary frequency and Denies urinary urgency Musc Denies arthralgias, Denies joint swelling, Denies numbness and Denies tingling Neuro Denies Abnormal speech present, Denies behavioral changes, Denies vertigo, Denies dizziness, Denies headache(s), Denies loss of vision, Denies memory loss, Denies numbness and Denies tingling Psych Denies anxiety, Denies behavioral changes, Denies depression, Denies memory loss and Denies panic attacks Nick/Lymph Denies easy bleeding and Denies easy bruising Aller/Immun Denies wheezing Physical exam (Primary Care) Vital Signs: Last Vital Signs Pulse 84 09/06/24 08:41 BP 152/90 H 09/06/24 08:45 Pulse Ox 98 09/06/24 08:41 Oxygen Delivery Method Room Air 09/06/24 08:41 BMI result Body Mass Index 32.9 Tobacco/Smoking Status: Tobacco use Status Tobacco use date assessed 09/06/24 09/06/24 08:44 Patient Tobacco Use Status Former Tobacco user 09/06/24 08:44 Tobacco use type Cigarette 09/06/24 08:44 e-Cigarette/Vaping Use Never Used 09/06/24 08:44 Thrive Assessment: Date of Thrive Assessment Date Thrive assessed 03/05/24 09/06/24 08:44 Const General: healthy appearing, no acute distress, alert and awake Nutritional Appearance: well nourished Orientation/consciousness: oriented to person, oriented to place and oriented to time HENMT Ears: TM's normal bilaterally General nose exam: Normal nasal mucous membranes and turbinates present Eyes Conjunctivae: conjunctivae normal Sclerae: sclerae normal Pupils: Equal, round and reactive pupils present Neck Neck: Yes no lymphadenopathy and Yes no JVD Thyroid: Thyroid normal Carotids: no bruits Resp Effort & Inspection: normal respiratory effort and not tachypneic Auscultation: no crackles, no rales, no rhonchi and no wheezes Cardio Rate: regular rate Rhythm: regular rhythm Heart sounds: no murmurs and normal S1 and S2 GI Palpation (GI): Soft to palpation, nontender, no hepatomegaly and no splenomegaly Auscultation: normal bowel sounds Skin General skin exam: no rashes or lesions noted and dry skin Neuro General: oriented to person, oriented to place and oriented to time Cranial nerves: Yes Equal, round and reactive pupils present Speech: No Abnormal speech present Gait exam (Neuro): Normal gait present Motor exam (neuro): no tremor noted Extrem Right upper extremity: full ROM Left upper extremity: full ROM Right lower extremity: full ROM; no edema Left lower extremity: full ROM; no edema Psych Mental Status: mental status grossly normal Speech and movement: Normal speech and movement present Affect: normal affect Attitude: cooperative Thought process: Normal thought process present Immunizations pneumoc 20-sussy conj-dip cr(PF) 0.5 mL IM syringe Performing Provider: Stef Page PA-C Performing Location[facility] [place] [facility] Administered by: Rose Shelton LPN on 09/06/24 09:12 Dose Route Admin Location Dispensed Lot Number Expiration Date [facility] Cyber Analyst 0.5 mL IM Left Deltoid 0.5 mL [id number] 10/29/25 8752-8038-30 Frequent BrowserETH/Exanet VIS Given Date VIS Provided VIS Publication Date 09/06/24 Single Vaccine 21 Eligibility Eligibility Date Funding Source Not [facility] Eligible 09/06/24 Private Coding Level of Care Code Est Pt Level 4 (07723) Diagnoses Primary hypertension I10 Hypertension type: primary hypertension Coronary artery disease involving [place] coronary artery of [place] heart without angina pectoris I25.10 Associated angina: without angina Coronary Disease-Associated Artery/Lesion type: [place] artery [place] vs. transplanted heart: [place] heart Mild persistent asthma without complication J45.30 Asthma complication type: uncomplicated Asthma persistence: persistent Asthma severity: mild Primary osteoarthritis of right knee M17.11 Laterality: right Osteoarthritis type: primary Class 1 obesity E66.811 Assessment & Plan Assessment & Plan (1) HTN (hypertension): Code(s): I10 - Essential (primary) hypertension Category: Medical Qualifiers: Hypertension type: primary hypertension Qualified Code(s): I10 - Essential (primary) hypertension Plan: Patient's blood pressure elevated today in office. He continues to have labile. Pressures to which he takes losartan 0.5 half tablet. He does report at times having low blood pressures he feels symptomatic with. It was thought to be due to his atherosclerotic disease causing his fluctuation as an blood pressure (2) CAD (coronary artery disease): Code(s): I25.10 - Atherosclerotic heart disease of [place] coronary artery without angina pectoris Category: Medical Qualifiers: Associated angina: without angina Coronary Disease-Associated Artery/Lesion type: [place] artery [place] vs. transplanted heart: [place] heart Qualified Code(s): I25.10 - Atherosclerotic heart disease of [place] coronary artery without angina pectoris Plan: patient continues on high dose statin therapy and aspirin. Goal LDL to be optimally below 70 (3) Asthma: Code(s): J45.909 - Unspecified asthma, uncomplicated Category: Medical Qualifiers: Asthma complication type: uncomplicated Asthma persistence: persistent Asthma severity: mild Qualified Code(s): J45.30 - Mild persistent asthma, uncomplicated Plan: Asthma has been well controlled with controlling his allergies. Only has to use his albuterol inhaler on a limited basis. (4) Knee osteoarthritis: Code(s): M17.9 - Osteoarthritis of knee, unspecified Category: Medical Qualifiers: Laterality: right Osteoarthritis type: primary Qualified Code(s): M17.11 - Unilateral primary osteoarthritis, right knee Plan: Has pretty significant knee osteoarthritis. He reports he usually has to get his knee drained. He is followed by Orthopedics in [place]. He is considering a knee replacement. (5) Class 1 obesity: Code(s): E66.811 - Obesity, class 1 Category: Medical Plan: Patient does understand his BMI is over 30 will work on being more physically active and adapting to better eating habits to reduce his weight Orders: Orders Pneumococcal 20 Immunization Today Z23 - Encounter for immunization Prostate Specific Antigen Scr Today Z12.5 - Encounter for screening for malignant neoplasm of prostate Comprehensive [place]. Panel Fast Today I25.10 - Atherosclerotic heart disease of [place] coronary artery without angina pectoris Complete Blood Count no Diff Today I25.10 - Atherosclerotic heart disease of [place] coronary artery without angina pectoris Lipid Panel Today I25.10 - Atherosclerotic heart disease of [place] coronary artery without angina pectoris Microalbumin, Random (w Creat) Today I10 - Essential (primary) hypertension Medications: Refilled omeprazole 20 mg PO DAILY 90 caps 1RF 90 days K21.9 - Gastro-esophageal reflux disease without esophagitis Patient Instructions: Goal: LDL to be optimally below 70, regulate blood pressure. :Barriers: Adherence to physical activity and healthy eating habits
[2024-09-06 08:41] VITALS: BP 150/100; PULSE 84; O2SAT 98; BMI 32.9
[2024-09-06 08:45] VITALS: BP 152/90
== END 2024-09-06 09:12 | disposition home or self-care (01) ==
LOC: HO.HMCH 08:32
PROVIDERS: PCP Physician Assistant; Visit Provider Physician Assistant
DX: I10 Essential (primary) hypertension (principal); E66.811 Obesity, class 1; Z68.32 Body mass index [BMI] 32.0-32.9, adult; I25.10 Atherosclerotic heart disease of native coronary artery without angina pectoris; J45.30 Mild persistent asthma, uncomplicated; M17.11 Unilateral primary osteoarthritis, right knee; Z23 Encounter for immunization

== ENCOUNTER → 2024-09-06 08:32 | Outpatient (BNVA) | payer MEDICARE, SELFPAY | PROVIDERS: PCP Physician Assistant; Visit Provider Physician Assistant | DX: Z23 Encounter for immunization (principal); I10 Essential (primary) hypertension; I25.10 Atherosclerotic heart disease of native coronary artery without angina pectoris; J45.30 Mild persistent asthma, uncomplicated; M17.11 Unilateral primary osteoarthritis, right knee; E66.811 Obesity, class 1 | CPT/HCPCS: 90471; 90677; 99212 ==

== ENCOUNTER 2025-03-12 08:10 | Outpatient (AMB) | payer MEDICARE, SELFPAY ==
--- NOTE | 2025-03-12 08:11 | A.OFFVIS_ITS ---
Intake Vital Signs 03/12/25 08:14 Height 6 ft 1 in Weight 250 lb BMI 33.0 BP 160/100 H Blood Pressure Location Lt brachial Position Sitting Pulse 77 Pulse Source Pulse Oximeter Temp 97.3 F Temp Source Temporal Artery Scan Pulse Oximetry (%) 93 Oxygen Delivery Method Room Air Intake Visit Reasons: AWV G0438/ PE Intake Note: Patient is here for an Annual Wellness Visit. Mending Carrier Required: No Visual Display Associate: Visual Display Associate offered & declined Accompanied by: Self / Same As Patient Allergies cats Allergy (Intermediate, Uncoded 03/12/25 08:21) sneezing, wheezing, SOB dogs Allergy (Intermediate, Uncoded 03/12/25 08:21) Sneezing, wheezing dust Allergy (Intermediate, Uncoded 03/12/25 08:21) sneezing, wheezing enviromental Allergy (Intermediate, Uncoded 03/12/25 08:21) sneezing, wheezing animals Adverse Reaction (Unknown, Uncoded 03/12/25 08:21) cats and dogs Medication List - Last Reconciled 03/12/25 by Stef Page PA-C albuterol sulfate 90 mcg/actuation 1 inh inhalation QID 30 days aspirin (Adult Low Dose Aspirin) 81 mg PO DAILY atorvastatin 80 mg PO DAILY losartan 12.5 mg (1/2 x 25 mg) PO DAILY 90 days montelukast 10 mg PO DAILY PRN omeprazole 20 mg PO DAILY 90 days sildenafil 100 mg PO DAILY PRN 7 days HPI AWV G0438/ PE HPI Details Jose A is a 64 year male here today for an annual wellness visit. ? Patient has a past medical history significant for coronary artery disease, hypertension, asthma. Unfortunately has not gotten labs before today's appointment. .. TODAY WE DISCUSSED PATIENT'S END OF LIFE PLANNING AND COMPREHENSIVE CARE PLAN. Was given a MOLST form today Colonoscopy: Done in 2020, repeat 5 years Vaccines: Up-to-date with COVID vaccine, flu shot, tetanus vaccine, considering shingles vaccine and pneumonia vaccine. HPI Comments History of Present Illness Details reviewed past medical history- yes reviewed surgical / hospitalization history- yes reviewed current medications- yes reviewed family history- yes home safety throw rugs? grab bars? raised toilet seat? working smoke detectors? activities of daily living difficulty bathing or showering? difficulty dressing? difficulty using the toilet? difficulty getting in and out of bed? difficulty walking? receives help from other person's with any of the above tasks? instrumental activities of daily living uses telephone - gets to place out of walking distance- go shopping for groceries- repairs own meals- does own minor home maintenance- does own laundry- does own housework- manages own money- currently takes medication- end of life planning discussed advanced directives- yes advanced directives on file? discussed wishes expressed in advanced directives. fall risk have you had any falls with injuries in the past year? have you had 2 or more falls in the past year? fall risk assessment: COUNTS INCLUDE 234 BEDS AT THE [facility] Medical History Microscopic hematuria Back pain Surgical History Stented coronary artery History of right knee surgery History of dental surgery Family History Father No problems noted. Mother Hepatitis C Brother Colon cancer Sister Rectal polyp Social History Housing: House Alcohol intake: current Alcohol intake frequency: a few times a week Alcohol type: beer and wine Patient Tobacco Use Status: Former Tobacco user Tobacco use type: Cigarette Years Smoked: 30 +/- e-Cigarette/Vaping Use: Never Used Second Hand Smoke Exposure: No service: Yes Current occupational status: retired Cognitive needs: No Hearing needs: No Vision needs: Yes Questionnaire Medicare Wellness Checkup What [age] What gender do you identify with?: male During the past 4 weeks, how much have you been bothered by emotional problems such as feeling anxious, depressed, irritable, sad or downhearted, and blue?: not at all During the past 4 weeks, has your physical & emotional health limited your social activities with family, friends, neighbors, or groups?: not at all During the past 4 weeks, how much bodily pain have you generally had?: mild pain During the past 4 weeks, was someone available to help you if you needed & wanted help?: yes, as much as I wanted During the past 4 weeks, what was the hardest physical activity you could do for at least 2 minutes?: heavy Can you get to places out of walking distance without help? (For eg., can you travel alone on buses, taxis or drive your car?): Yes Can you go shopping for groceries or clothes without someone's help?: Yes Can you prepare your own meals?: Yes Can you do your housework without help?: Yes Because of any health problems, do you need the help of another person with your personal care needs such as eating, bathing, dressing or getting around the house?: No Can you handle your own money without help?: Yes During the past 4 weeks, how would you rate your health in general?: good During the past 4 weeks how have things been going for you?: pretty well Are you having difficulties driving your car?: no Do you always fasten your seat belt when you are in a car?: yes, usually During past 4 weeks, have you been bothered by the following: never: Trouble eating well? and Problems using the telephone? and sometimes: Falling or dizzy when standing up, Sexual problems? and Tiredness or fatigue? Have you fallen 2 or more times in the past year?: No Are you afraid of falling?: No Are you a smoker?: no During the past 4 weeks, how many drinks of wine, beer, or other alcoholic beverages did you have?: 2-5 drinks per week Do you exercise for about 20 minutes 3 or more times a week?: yes, most of the time Have you been given information to help with the following?: no: Hazards in your house that might hurt you? and no: Keeping track of your medications? How often do you have trouble taking medicines the way you have been told to take them?: I always take medicine as prescribed How confident are you that you can control & manage most of your health problems?: very confident What is your race?: White Mini Mental State Exam (MMSE) Orientation What is the (year) (season) (date) (day) (month)?: year Where are we (state) (county) (town or city) (hospital) (floor)?: town or city Attention & Calculation (CHOOSE ONE) Spell WORLD backwards (DLROW): 5 letters Score Score: 7 Activity of Daily Living Bathing - sponge bath, tub bath or shower: receives no assistance (gets in/out by self, if usual bathing means Dressing - getting clothes from closets & drawers, including inner/outer garments & fasteners.: gets clothes & gets completely dressed without help Toileting - going to the 'toilet room' for urine/bowel elimination & cleaning self/arranging clothes: goes to toilet room, cleans self, arranges clothes without help Transfer: moves in & out of bed and chair without help (may use support object) Continence: controls urination/bowel movements completely by self Feeding: feeds self without help Total Score: 0 Information obtained from: patient Using telephone: independent Traveling: independent Shopping: independent Preparing meals: independent Housework: independent Taking medicine: independent Managing money: independent PHQ-9 Over the last 2 weeks, how often have you been bothered by any of the following problems? 1. Little interest or pleasure in doing things: not at all 2. Feeling down, depressed, or hopeless: not at all 3. Trouble falling or staying asleep, or sleeping too much: not at all 4. Feeling tired or having little energy: not at all 5. Poor appetite or overeating: not at all 6. Feeling bad about yourself - or that you are a failure or have let yourself or your family down: not at all 7. Trouble concentrating on things, such as reading the newspaper or watching television: not at all 8. Moving or speaking so slowly that other people could have noticed. Or the opposite - being so fidgety or restless that you have been moving around a lot more than usual: not at all 9. Thoughts that you would be better off or of hurting yourself in some way: not at all Total score: 0 Depression Screening Interpretation: Negative Depression Screening Done: Yes 06979 - PHQ-9 Billing: Yes Source: Developed by Drs. Eduard Muhammad, Cecilia Casarez, Chadwick Berg and colleagues, with an educational tal from [employer]. Thrive Questionnaire Date Thrive assessed: 03/12/25 I am a: Patient What is your living situation today?: I have a steady place to live Within the past 12 months, did the food you bought not last and you didn't have the money to get more?: Never true Within the past 12 months, did you worry whether your food would run out before you got money to buy more?: Never true Do you have trouble paying for medicines?: No Do you have trouble getting transportation to medical appointments?: No Do you have trouble paying your heating and electricity bill?: No Do you have trouble taking care of your child, family member or friend?: No Do you have trouble with day-to-day activities such as bathing, preparing meals, shopping, managing finances, etc.?: No Are you currently unemployed and looking for a job?: No Are you interested in more education?: No Please select the resources that you would like help with: None Currently or been in a relationship where the following occur: No concerns reported THRIVE Score: 0 SAEED-7 AMB Questionnaire SAEED-7 Date SAEED - 7 assessed: 03/12/25 Feeling nervous, anxious, or on edge: 0 = Not at all Not being able to stop or control worryin = Not at all Worrying too much about different things: 0 = Not at all Trouble relaxin = Not at all Being so restless that it is hard to sit still: 0 = Not at all Becoming easily annoyed or irritable: 0 = Not at all Feeling afraid as if something awful might happen: 0 = Not at all Total SAEED-7 score (0-4 normal; 5-9 mild; 10-14 moderate; 15-21 severe): 0 Source: Developed by Drs. Eduard Muhammad, Cecilia Casarez, Chadwick Berg and colleagues, with an educational tal from [employer]. SAEED-7 Assessment Billing SAEED-7 Assessment Tool: SAEED-7 Assessment 13119 AUDIT C Alcohol Use Questionnaire (AUDIT-C) 2. How many drinks containing alcohol do you have on a typical day when you are drinking?: 1 or 2 3. How often do you have six or more drinks on one occasion?: Never Total Score: 0 Physical Exam Vital Signs: Last Vital Signs Temp 97.3 F 03/12/25 08:14 Pulse 77 03/12/25 08:14 BP 160/100 H 03/12/25 08:14 Pulse Ox 93 03/12/25 08:14 Oxygen Delivery Method Room Air 03/12/25 08:14 BMI result Body Mass Index 33.0 HEENT Other: hearing screening whisper test- passed Eyes Other: vision screening- 20 20 OS OD OU Other: urinary incontinence? No Neuro Other: balance Romberg- normal tandem walk test- able walk-in turned test- Able rise from sit to stand- within 2 seconds Assessment & Plan Assessment & Plan (1) Medicare annual wellness visit, initial: Code(s): Z00.00 - Encounter for general adult medical examination without abnormal findings Plan: As per [facility] Orders: Referrals Gastroenterology Referral K63.5 - Polyp of colon Quality Reporting (2019) Depression/Bipolar (159/160/161/177) PHQ-9: Total score: 0 Coding Level of Care Code Medicare First (G0438) Diagnoses Medicare annual wellness visit, initial Z00.00 CPT Codes Advance Care Planning - Time spent: 1-15 minutes, not on file ([id number]) Additional Codes SAEED-7 Assessment Billing - SAEED-7 Assessment Tool: SAEED-7 Assessment 51565 ([id number]) PHQ-9 - 32489 - PHQ-9 Billing: Yes ([id number]) Advance Care Planning Advance Care Planning discussion: Exists, not on file Date of discussion: 03/13/25 Forms completed: MOLST Time spent: 1-15 minutes, not on file Actual minutes spent: 4
[2025-03-12 08:14] VITALS: BP 160/100; PULSE 77; TEMP 36.3; O2SAT 93; BMI 33.0
== END 2025-03-12 08:55 | disposition home or self-care (01) ==
LOC: HO.HMCH 08:10
PROVIDERS: PCP Physician Assistant; Visit Provider Physician Assistant
DX: Z00.00 Encounter for general adult medical examination without abnormal findings (principal)

== ENCOUNTER → 2025-03-12 08:10 | Outpatient (BNVA) | payer MEDICARE, SELFPAY | PROVIDERS: PCP Physician Assistant; Visit Provider Physician Assistant | DX: Z00.00 Encounter for general adult medical examination without abnormal findings (principal); Z87.891 Personal history of nicotine dependence | CPT/HCPCS: 96127 ==

== ENCOUNTER 2025-05-02 10:34 | Outpatient (REF) | payer MEDICARE, SELFPAY ==
--- OUTSIDE RECORDS SUMMARY | 2025-05-02 11:17 | XMS_ITS | Patient Health Record ---
Author Organization [facility] Address [address] [place] [address] Care Team Providers Care Investment Associate Name Role Phone Stef Page Primary Care Provider Unavailab Eduard Bowman Unavailable [phone] Reason For Referral No Information Medications Medication SIG (Take, Route, Frequency, Duration) Notes Start Date End Date Status Atorvastatin Calcium 80 MG 1 tablet Oral ly Once a day Active Aspir-81 once a day Active Losartan Potassium 50 MG 1 tablet Orally Once a day Active Albuterol Sulfate HFA Active Immunizations Vaccine Route Administration Date Status Comme nts Influenza Unknown 07/31/2019 Administered Social History Alcohol Screen Question Answer Notes Did you have a drink contain ing alcohol in the past year? Yes How often did you have a dri nk containing alcohol in the past year? 2 to 3 times a week (3 points) How many drinks did you have on a typical day when you were drinking in the past year? 1 or 2 drinks (0 point) How often did you have 6 or more drinks on one occasion in the past year? Never (0 point) Points 3 Interpretation Negative Section Notes: No smoking, has occasional a lcohol No smoking, has occasional a lcohol Problems Problem Type SNOMED Code ICD Code Onset Dates Problem Status W/U Status Risk Notes Problem 322485750 Encounter for screening for malignant neoplasm of colon (Z12.11) Active confirmed Problem 942697632122758 Preprocedural examination (Z01.818) Active confirmed Problem 5670645547765 Family history o f colorectal cancer (Z80.0) Active confirmed Problem 569088341 Hx of adenomatou s colonic polyps (Z86.010) Active confirmed Plan Of Treatment Pending Test Test Name Order Date GI BIOPSY 04/14/2020 Future Test Test Name Order Date COLONOSCOPY 01/26/2012 COLONOSCOPY 02/13/2020 Next Appt Details Provider Name:Eduard Shetty , 07/18/2025 10:00:00 AM, [address], [address], [place], [address], Insurance Providers Payer Name Payer Address Payer Phone Subscriber Number Group Number Insured Name Patient Relationship to Insured Coverage Start Date Coverage End Date MEDICARE OF [place] [address] [place] [address] [id number] ROSELIA ROCHA Self - patient is the insured MEDEX ATTN CLAIMS [address] [place] [address] [phone] [id number] ROSELIA ROCHA Self - patient is the insured Medical (General) History Medical History History ICD Code CAD with stent in 2009, denies [place]-had ne gative ETT in 10/2011 HTN Kidney stones Hyperlipidemia Denies [place],DM,CVA,Lung disease,renal dise ase Asthma due to Environmental allergies Right inguinal hernia--seen by Dr. Saldana--no surgery as yet as of 02/13/2020 Screening Colonoscopy 01/2012 with a smal l tubular adenoma Surgical History Surgery Date(Month/Year) Left inguinal hernia repair-Dr. Saldana at [facility] 2012 Right knee arthroscopy
[2025-05-02 11:29] LABS: Hematocrit 42.6 % (42.0-52.0); Hemoglobin 14.7 g/dl (14.0-18.0); Mean Corpuscular HGB Conc 34.5 g/dl (31.0-36.0); Mean Corpuscular Hemoglobin 32.7 pg (27.0-33.0); Mean Corpuscular Volume 94.7 fL (80.0-98.0); NRBC Abs Auto 0.000 X10*3/uL (0.0-0.012); NRBC Pct Auto 0.0 /100WBC (0.0-0.2); Platelet Count 166 X10*3/uL (160-400); Red Blood Count 4.50 X10*6/uL (4.60-5.80); White Blood Count 5.2 X10*3/uL (4.8-10.8)
[2025-05-02 11:55] LABS: Microalbum/Creatinine Ratio Ur 7.0 ug/mg cr (<30)
[2025-05-02 11:59] LABS: Alanine Aminotransferase 32 U/L (0-40); Albumin Level 4.2 g/dL (3.5-5.0); Alkaline Phosphatase 78 U/L (39-117); Anion Gap 11 (12-20); Aspartate Amino Transferase 34 U/L (5-37); Blood Urea Nitrogen 16 mg/dL (9-16); Calcium 8.9 mg/dL (8.4-10.2); Carbon Dioxide 29 mmol/L (22-29); Chloride 103 mmol/L (96-108); Cholesterol 158 mg/dL (<200); Estimated Glomerular Filt Rate > 60; HDL Cholesterol 47 mg/dL (>40); Potassium 4.4 mmol/L (3.3-5.1); Sodium 139 mmol/L (135-145); Total Protein 7.4 g/dL (6.5-8.0); Triglycerides 99 mg/dL (<150)
== END 2025-05-02 10:35 | disposition home or self-care (01) ==
LOC: HO.LAB 10:34
PROVIDERS: PCP Physician Assistant; Visit Provider Physician Assistant
DX: I25.10 Atherosclerotic heart disease of native coronary artery without angina pectoris (principal); I10 Essential (primary) hypertension; Z12.5 Encounter for screening for malignant neoplasm of prostate
CPT/HCPCS: 36415; 80053; 80061; 82043; 82570; 84153; 85027

== ENCOUNTER 2025-05-08 08:37 | Outpatient (AMB) | payer MEDICARE, SELFPAY ==
--- NOTE | 2025-05-08 08:43 | MHC.OFFVIS ---
Vital Signs 05/08/25 08:45 Height 6 ft 1 in Weight 246 lb 14.684 oz BMI 32.6 BP 130/74 Blood Pressure Location Lt brachial Position Sitting Pulse 85 Intake Visit Reasons: 1 yr f/up Intake Note: 1 year follow-up ekg c/o low bp yesterday Ventilator Specialist Required: No Allergies cats Allergy (Intermediate, Uncoded 03/12/25 08:21) sneezing, wheezing, SOB dogs Allergy (Intermediate, Uncoded 03/12/25 08:21) Sneezing, wheezing dust Allergy (Intermediate, Uncoded 03/12/25 08:21) sneezing, wheezing enviromental Allergy (Intermediate, Uncoded 03/12/25 08:21) sneezing, wheezing animals Adverse Reaction (Unknown, Uncoded 03/12/25 08:21) cats and dogs Medication List - Last Reconciled 05/08/25 by Isael Torres MD albuterol sulfate 90 mcg/actuation 1 inh inhalation QID 30 days aspirin (Adult Low Dose Aspirin) 81 mg PO DAILY atorvastatin 80 mg PO DAILY losartan 12.5 mg (1/2 x 25 mg) PO DAILY 90 days omeprazole 20 mg PO DAILY 90 days sildenafil 100 mg PO DAILY PRN 7 days HPI Comments Details: Robert comes for follow-up. Continues to have low blood pressure on days when he is doing some exertional activity. He says blood pressure can run low and then he feels really poorly. He said after resting when he gets up he gets lightheaded. He has not had a syncopal episode. He understands orthostatic precautions. He said on those days usually then he rest. On other days with less or no exertional activity has no symptoms. Occasionally blood pressure is significantly elevated with systolic blood pressure up to 165 without any clear triggers. He takes losartan low-dose at nighttime. Takes all other medications. Denies any clear anginal symptoms. No prolonged palpitation irregular heartbeat. No heart failure symptoms. [facility] Medical History Microscopic hematuria Back pain Surgical History Stented coronary artery History of right knee surgery History of dental surgery Family History Father No problems noted. Mother Hepatitis C Brother Colon cancer Sister Rectal polyp Social History Housing: House Alcohol intake: current Alcohol intake frequency: a few times a week Alcohol type: beer and wine Patient Tobacco Use Status: Former Tobacco user Tobacco use type: Cigarette Years Smoked: 30 +/- e-Cigarette/Vaping Use: Never Used Second Hand Smoke Exposure: No service: Yes Current occupational status: retired Cognitive needs: No Hearing needs: No Vision needs: Yes Review of Systems Const Denies chills, Denies fatigue, Denies fever(s), Denies frequent falls, Denies weakness, Denies weight gain and Denies weight loss ENT Denies dizziness Card Denies chest pain, Denies leg edema, Denies lightheadedness, Denies palpitations, Denies dyspnea, Denies dyspnea on exertion, Denies orthopnea and Denies other (loss of consciousness) Resp Denies cough, Denies dyspnea and Denies dyspnea on exertion GI Denies hematochezia and Denies change in stool character Musc Denies abnormal gait, Denies muscle weakness, Denies numbness, Denies radiating pain into limb and Denies tingling Neuro Denies abnormal gait, Denies dizziness, Denies frequent falls, Denies numbness, Denies tingling and Denies weakness Endo Denies fatigue and Denies palpitations Physical Exam Vital Signs: Last Vital Signs Pulse 85 05/08/25 08:45 BP 130/74 05/08/25 08:45 BMI result Body Mass Index 32.6 Const General: cooperative, comfortable, no acute distress, alert, awake and Physically active Nutritional Appearance: obese Orientation/consciousness: patient oriented x3 Limitations: no limitations Neck Neck: Yes trachea midline, Yes supple and Yes no JVD Resp Effort & Inspection: normal respiratory effort Auscultation: clear to auscultation bilaterally Cardio Jugular venous distension: no JVD Palpation: normal PMI Rate: regular rate Rhythm: regular rhythm Heart sounds: S1 normal heart sound present, S2 normal heart sound present, no click, no gallops, no murmurs and no rubs GI Auscultation: normal bowel sounds Skin General skin exam: no rashes or lesions noted Neuro General: patient oriented x3 and no focal motor deficits Extrem General: Yes no clubbing, cyanosis or edema Office Procedures EKG Details: EKG shows normal sinus rhythm with right bundle-branch block with inferior and inferolateral infarct 97258-Gnkjmhdeerhmusfye, Complete Assessment & Plan Assessment & Plan (1) Labile blood pressure: Code(s): R09.89 - Other specified symptoms and signs involving the circulatory and respiratory systems Category: Medical Plan: Patient was significantly labile blood pressure on days blood pressure is low when he is active and other days blood pressure could be significantly elevated. We discussed about orthostatic precautions understands that well. Advise electrolyte intake with water intake on days when in his blood pressure is low so that he feels well and he is functional. Discussed that when his blood pressure is significantly elevated he can take extra 12.5 losartan in the morning. Difficulty in managing this significant labile blood pressure which appears to be related to autonomic dysfunction of unclear etiology was discussed with him. He understands. Will check for renal artery stenosis with renal duplex. (2) CAD (coronary artery disease): Code(s): I25.10 - Atherosclerotic heart disease of [place] coronary artery without angina pectoris Category: Medical Qualifiers: Coronary Disease-Associated Artery/Lesion type: [place] artery [place] vs. transplanted heart: [place] heart Associated angina: without angina Qualified Code(s): I25.10 - Atherosclerotic heart disease of [place] coronary artery without angina pectoris Plan: CAD with exertional fatigue and tiredness with low blood pressure. Less likely but critical three-vessel coronary artery disease including left main could potentially cause diffuse myocardial ischemia and low blood pressure. Will suggest a coronary CTA to evaluate for the same. Continue low-dose aspirin therapy. Continue high-intensity statin therapy with target goal LDL less than 70 mg/dL. Blood pressure management as above. (3) Enlarged thoracic aorta: Code(s): I77.89 - Other specified disorders of arteries and arterioles Category: Medical Plan: Mildly enlarged thoracic aorta currently stable with no symptoms. Advised to avoid sudden strenuous isometric exercise. Continue aggressive risk factor modifications above. Follow-up echocardiogram in 10 weeks' time. Will follow up in the clinic in 3 months time, sooner p.r.n.. Thank you for allowing me to partake in his care Orders: Orders US renal doppler Today R09.89 - Other specified symptoms and signs involving the circulatory and respiratory systems CT Cardiac Coronary Angio 1 Week I25.10 - Atherosclerotic heart disease of [place] coronary artery without angina pectoris CA echo transthoracic complete 10 Weeks I77.89 - Other specified disorders of arteries and arterioles Coding Level of Care Code Est Pt Level 4 (68401) Complex EM visit Add On G2211 Diagnoses Labile blood pressure R09.89 Coronary artery disease involving [place] coronary artery of [place] heart without angina pectoris I25.10 Coronary Disease-Associated Artery/Lesion type: [place] artery [place] vs. transplanted heart: [place] heart Associated angina: without angina Enlarged thoracic aorta I77.89 CPT Codes EKG - CPT: 09665-[id number], Complete ([id number])
[2025-05-08 08:45] VITALS: BP 130/74; PULSE 85; BMI 32.6
--- OUTSIDE RECORDS SUMMARY | 2025-05-08 08:51 | XMS_ITS | Patient Health Record ---
Author Organization [facility] Address [address] [place] [address] Care Team Providers Care Bowling Ball Grader And Marker Name Role Phone Stef Page Primary Care Provider Unavailab Eduard Bowman Unavailable [phone] Reason For Referral No Information Medications Medication [...] Problem Status W/U Status Risk Notes Problem [id number] Encounter for screening for malignant neoplasm of colon (Z12.11) Active confirmed Problem 063625520187258 Preprocedural examination (Z01.818) Active confirmed Problem 3032809203675 Family history o f colorectal cancer (Z80.0) Active confirmed Problem 647524945 Hx of adenomatou s colonic polyps (Z86.010) Active confirmed Plan Of Treatment Pending Test Test Name Order Date GI BIOPSY 04/14/2020 Future Test Test Name Order Date COLONOSCOPY 01/26/2012 COLONOSCOPY 02/13/2020 Next Appt Details Provider Name:Eduard Shetty , 07/18/2025 10:00:00 AM, [address], [address], [place], [address], Insurance Providers Payer Name Payer Address Payer Phone Subscriber Number Group Number Insured Name Patient Relationship to Insured Coverage Start Date Coverage End Date MEDICARE OF [place] [address] [place] [address] [id number] ROSELIA ROCHA Self - patient is the insured MEDEX ATTN CLAIMS [address] [place] [address] [phone] [id number] ROSELIA ROCHA Self - patient is the insured Medical (General) History Medical History History ICD Code CAD with stent in 2009, denies [place]-had ne gative ETT in 10/2011 HTN Kidney stones Hyperlipidemia Denies [place],DM,CVA,Lung disease,renal dise ase Asthma due to Environmental allergies Right inguinal hernia--seen by Dr. Saldana--no surgery as yet as of 02/13/2020 Screening Colonoscopy 01/2012 with a smal l tubular adenoma Surgical History Surgery Date(Month/Year) Left inguinal hernia repair-Dr. Saldana at [facility] 2012 Right knee arthroscopy
== END 2025-05-08 09:22 | disposition home or self-care (01) ==
LOC: HO.HCS 08:37
PROVIDERS: PCP Physician Assistant; Visit Provider Internal Medicine Cardiovascular Disease
DX: R09.89 Other specified symptoms and signs involving the circulatory and respiratory systems (principal); I25.10 Atherosclerotic heart disease of native coronary artery without angina pectoris; I77.89 Other specified disorders of arteries and arterioles
CPT/HCPCS: 93010; 99214; G2211

== ENCOUNTER → 2025-05-08 08:37 | Outpatient (BNVA) | payer MEDICARE, SELFPAY | PROVIDERS: PCP Physician Assistant; Visit Provider Internal Medicine Cardiovascular Disease | DX: R09.89 Other specified symptoms and signs involving the circulatory and respiratory systems (principal); I25.10 Atherosclerotic heart disease of native coronary artery without angina pectoris; I45.10 Unspecified right bundle-branch block; I25.2 Old myocardial infarction; I77.810 Thoracic aortic ectasia; Z79.82 Long term (current) use of aspirin; Z79.899 Other long term (current) drug therapy | CPT/HCPCS: 93005; 99212 ==

== ENCOUNTER 2025-06-24 08:21 | Outpatient (REF) | payer MEDICARE, SELFPAY ==
--- NOTE | ~2025-06-24 | US_ITS ---
EXAMINATION: Ultrasound renal bilaterally. Ultrasound renal Doppler, bilaterally. CLINICAL INFORMATION: Hypertension. R09.89. COMPARISON: December 02, 2017. TECHNIQUE: Real-time ultrasound kidneys using grayscale and color Doppler technique. Spectral Doppler analysis within the abdominal aorta at the level of the renal artery origin, main renal arteries the segmental interlobular arteries. Segmental resistive indicis obtained bilaterally. FINDINGS: Right kidney: 11 x 6 x 5 cm. Normal echotexture. Normal renal cortical thickness. No hydronephrosis. There are least 3 hyperechoic lesions in the range of 5-7 mm at the lower pole and midportion of the pelvicalyceal system. Left kidney: 11 x 6 x 5 cm. Normal echotexture. Normal renal cortical thickness. No hydronephrosis. There is 8mm hyperechoic structure in the midportion of the pelvicalyceal system. SPECTRAL DOPPLER ANALYSIS: Right Kidney: -Peak systolic velocity in the proximal right renal artery = 154 cm/s. Normal waveforms. -Peak systolic velocity in the mid right renal artery = 90 cm/s. Normal waveforms. -Peak systolic velocity in the distal right renal artery = 88 cm/s. Normal waveforms. -Patent right renal vein. -Upper pole interlobar artery resistive index of 0.6. -Midpole interlobar artery resistive index of 0.6. -Lower pole interlobar artery resistive index of 0.6. RAR right = 2.32 Left Kidney: -Peak systolic velocity in the proximal left renal artery = 106 cm/s. Normal waveforms. -Peak systolic velocity in the mid left renal artery = 118 cm/s. Normal waveforms. -Peak systolic velocity in the distal left renal artery = 96 cm/s. Normal waveforms. -Patent left renal vein. -Upper pole interlobar artery resistive index of 0.7. -Mid pole interlobar artery resistive index of 0.6. -lower pole interlobar artery resistive index of 0.7. RAR left = 1.78 Aorta: -Peak systolic velocity = 66 cm/s. US/US renal BI IMPRESSION: No hemodynamically significant stenosis by ultrasound criteria at either main renal artery. Bilateral nonobstructing nephrolithiasis. Electronically signed by: Binh Augustin MD 06/24/2025 10:09 AM EDT
--- NOTE | ~2025-06-24 | US_ITS ---
EXAMINATION: Ultrasound renal bilaterally. Ultrasound renal Doppler, bilaterally. CLINICAL INFORMATION: Hypertension. R09.89. COMPARISON: December 02, 2017. TECHNIQUE: Real-time ultrasound kidneys using grayscale and color Doppler technique. Spectral Doppler analysis within the abdominal aorta at the level of the renal artery origin, main renal arteries the segmental interlobular arteries. Segmental resistive indicis obtained bilaterally. FINDINGS: Right kidney: 11 x 6 x 5 cm. Normal echotexture. Normal renal cortical thickness. No hydronephrosis. There are least 3 hyperechoic lesions in the range of 5-7 mm at the lower pole and midportion of the pelvicalyceal system. Left kidney: 11 x 6 x 5 cm. Normal echotexture. Normal renal cortical thickness. No hydronephrosis. There is 8mm hyperechoic structure in the midportion of the pelvicalyceal system. SPECTRAL DOPPLER ANALYSIS: Right Kidney: -Peak systolic velocity in the proximal right renal artery = 154 cm/s. Normal waveforms. -Peak systolic velocity in the mid right renal artery = 90 cm/s. Normal waveforms. -Peak systolic velocity in the distal right renal artery = 88 cm/s. Normal waveforms. -Patent right renal vein. -Upper pole interlobar artery resistive index of 0.6. -Midpole interlobar artery resistive index of 0.6. -Lower pole interlobar artery resistive index of 0.6. RAR right = 2.32 Left Kidney: -Peak systolic velocity in the proximal left renal artery = 106 cm/s. Normal waveforms. -Peak systolic velocity in the mid left renal artery = 118 cm/s. Normal waveforms. -Peak systolic velocity in the distal left renal artery = 96 cm/s. Normal waveforms. -Patent left renal vein. -Upper pole interlobar artery resistive index of 0.7. -Mid pole interlobar artery resistive index of 0.6. -lower pole interlobar artery resistive index of 0.7. RAR left = 1.78 Aorta: -Peak systolic velocity = 66 cm/s. US/US renal doppler IMPRESSION: No hemodynamically significant stenosis by ultrasound criteria at either main renal artery. Bilateral nonobstructing nephrolithiasis. Electronically signed by: Binh Augustin MD 06/24/2025 10:09 AM EDT
--- OUTSIDE RECORDS SUMMARY | 2025-06-24 08:44 | XMS_ITS | Patient Health Record ---
Author Organization [facility] Address [address] [place] [address] Care Team Providers Care Uniform Maker Name Role Phone Stef Page Primary Care Provider Unavailab Eduard Bowman Unavailable [phone] Reason For Referral No Information Medications Medication [...] Problem Status W/U Status Risk Notes Problem [id number] Encounter for screening for malignant neoplasm of colon (Z12.11) Active confirmed Problem [id number] Preprocedural examination (Z01.818) Active confirmed Problem [id number] Family history o f colorectal cancer (Z80.0) Active confirmed Problem [id number] Hx of adenomatou s colonic polyps (Z86.010) Active confirmed Plan Of Treatment Pending Test Test Name Order Date GI BIOPSY 04/14/2020 Future Test Test Name Order Date COLONOSCOPY 01/26/2012 COLONOSCOPY 02/13/2020 Next Appt Details Provider Name:Eduard Shetty , 07/18/2025 10:00:00 AM, [address], [address], [place], [address], Insurance Providers Payer Name Payer Address Payer Phone Subscriber Number Group Number Insured Name Patient Relationship to Insured Coverage Start Date Coverage End Date MEDICARE OF [place] [address] [place] [address] [id number] ROSELIA ROCHA Self - patient is the insured [employer] ATT[employer] CLAIMS [address] [place] [address] [id number] ROSELIA ROCHA Self - patient is the insured Medical (General) History Medical History History ICD Code CAD with stent in 2009, denies [place]-had ne gative ETT in 10/2011 HTN Kidney stones Hyperlipidemia Denies [place],DM,CVA,Lung disease,renal dise ase Asthma due to Environmental allergies Right inguinal hernia--seen by Dr. Saldana--no surgery as yet as of 02/13/2020 Screening Colonoscopy 01/2012 with a smal l tubular adenoma Surgical History Surgery Date(Month/Year) Left inguinal hernia repair-Dr. Saldana at [facility] 2012 Right knee arthroscopy
== END 2025-06-24 08:22 | disposition home or self-care (01) ==
LOC: HO.US 08:21
PROVIDERS: PCP Physician Assistant; Visit Provider Internal Medicine Cardiovascular Disease
DX: R09.89 Other specified symptoms and signs involving the circulatory and respiratory systems (principal)
CPT/HCPCS: 76775; 93975

== ENCOUNTER → 2025-06-24 08:23 | Outpatient (BNV) | payer MEDICARE, SELFPAY | PROVIDERS: PCP Physician Assistant; Visit Provider Radiology Diagnostic Radiology | DX: R09.89 Other specified symptoms and signs involving the circulatory and respiratory systems (principal) | CPT/HCPCS: 93975 ==

== ENCOUNTER 2025-06-24 09:31 | Outpatient (AMB) | payer MEDICARE, SELFPAY | END 2025-06-24 09:37 | disposition home or self-care (01) | LOC: HO.HMGAL 09:31 | PROVIDERS: PCP Physician Assistant; Visit Provider Registered Nurse Emergency | DX: J30.89 Other allergic rhinitis (principal) | CPT/HCPCS: 95117; 95165 ==

== ENCOUNTER → 2025-07-17 08:56 | Outpatient (REF) | payer MEDICARE, SELFPAY ==
--- NOTE | 2025-07-17 08:58 | CA_ITS ---
Transthoracic Echocardiogram Patient (Last, First, Middle): Jose A Guillen F Gender: M Date of : 1960 Age: 65 Procedure Date: 07/17/2025 Procedure Type: Transthoracic Echocardiogram Location: OP Height: 187.96 cm Weight: 111.13 kg BSA: 2.37 m2 Heart Rate: bpm BP: 150 / 80 mmHg Analysis Mgr: TO/RC Referring MD: Isael Torres MD Symptoms: I77.89 - Other specified disorders of arteries and arterioles Study Quality: Fair ECG Rhythm: Sinus Conclusions: - The left ventricular systolic function is normal. The calculated ejection fraction is 63% by biplane method. - The basal inferior segment is hypokinetic. - No obvious valvular pathology seen on this study. - There is mild dilatation of the ascending aorta measuring 4.00 cm. Findings Left Ventricle Normal left ventricular cavity size. There is normal left ventricular wall thickness. The left ventricular systolic function is normal. The calculated ejection fraction is 63% by biplane method. There is no evidence of regional wall motion abnormalities. Evidence suggests grade I (mild) diastolic dysfunction. Wall Motion Rest Echo Findings The basal inferior segment is hypokinetic. Right Ventricle Mildly increased right ventricular cavity size. There is normal right ventricular systolic function. Atria Mild biatrial enlargement. Aortic Valve The aortic valve structure and function is likely normal. There is no aortic valve stenosis. There is no aortic valve regurgitation. Mitral Valve The mitral valve appears normal. There is no mitral valve regurgitation. There is no mitral valve stenosis. Pulmonic Valve The pulmonic valve is likely normal. Tricuspid Valve There is no tricuspid valve regurgitation. There is no evidence of pulmonary hypertension. Great Vessels There is mild dilatation of the ascending aorta measuring 4.00 cm. Venous The inferior vena cava is normal in size and collapses greater than 50% with inspiration. Pericardium/Pleural There is no evidence of pericardial effusion. Prior Study Comparison No significant change compared to prior study dated: 07/12/2024. Recommendations, Care & Conclusions No obvious valvular pathology seen on this study. Measurements 2D Linear Measurements IVSd: 0.95 0.6-0.9/0.6-1.0 cm LVIDd: 4.52 3.9-5.3/4.2-5.9 cm LVIDd Index: 1.91 2.4-3.2/2.2-3.1 cm/m2 LVIDs: 2.75 2.0-3.6 cm LVPWd: 0.90 0.7-1.1 cm LA Diam: 4.20 2.7-3.8/3.0-4.0 cm LAIDs Index: 1.77 1.5-2.3 cm/m2 LV Mass: 171.76 67-162/88-224 g LV Mass Index: 72.47 43-95/49-115 g/m2 LVOT Diam: 2.30 3.0+(-)1.3 cm 2D Systolic Function EF 4C: 66.60 >55% EF 2C: 57.80 >55% EF BiP: 63.40 >55% Mitral Valve MV VTI: 0.29 MV Pk Russ: 1.01 MV Mn Russ: 0.69 MV Pk Grad: 4.00 MV Mn Grad: 2.00 MV Pk E: 0.75 MV PK A: 0.86 MV Decel Time: 240.00 E/A: 0.90 E'Lateral: 6.74 E'Medial: 5.22 E/E' Med: 14.40 E/E' Lat: 11.20 PHT: 70.00 MVA PHT: 3.14 MVA Continuity: 3.81 Decel Kimball: 3.14 Aortic Valve AoV Pk Russ: 1.14 AoV Mn Russ: 0.81 AoV VTI: 0.25 AoV Pk Grad: 5.00 Aov Mn Grad: 3.00 ANIBAL Cont.VTI: 4.47 LVOT LVOT Pk Russ: 1.32 LVOT Mn Russ: 0.86 LVOT VTI: 0.27 LVOT Pk Grad: 7.00 LVOT Mn Grad: 3.00 LVOT Diam: 2.30 LVOT Area: 4.15 Diastolic Function MV Pk E: 0.75 MV Pk A: 0.86 E/A: 0.90 E'Medial: 5.22 E/E' Med: 14.40 E' Laterial: 6.74 E/E' Lat: 11.20 Right Ventricle TAPSE (mm): 20.40 TVS' Russ: 13.90 Great Vessels Aorta Sinus of Valsalva: 3.90 2.0-3.5 cm Ao Asc: 4.00 2.1-3.4 cm Pulmonary Veins Pulm Vein S/D 1.10 Pulmonary Valve PV Pk Russ: 0.98 Peak PV Grad: 4.00 Updated in Other Vendor System with Status of Final Aashish Cleary MD electronically signed on 07/19/2025 3:45:36 PM with status of Final
--- OUTSIDE RECORDS SUMMARY | 2025-07-17 10:30 | XMS_ITS | Patient Health Record ---
Author Organization [facility] Address [address] [place] [address] Care Team Providers Care [employer] Products Sales Representative Name Role Phone Stef Page Primary Care Provider Unavailab Eduard Bowman Unavailable [phone] Reason For Referral No Information Medications Medication [...] Problem Status W/U Status Risk Notes Problem [id number] Encounter for screening for malignant neoplasm of colon (Z12.11) Active confirmed Problem [id number] Preprocedural examination (Z01.818) Active confirmed Problem [id number] Family history o f colorectal cancer (Z80.0) Active confirmed Problem 708490155 Hx of adenomatou s colonic polyps (Z86.010) Active confirmed Plan Of Treatment Pending Test Test Name Order Date GI BIOPSY 04/14/2020 Future Test Test Name Order Date COLONOSCOPY 01/26/2012 COLONOSCOPY 02/13/2020 Next Appt Details Provider Name:Eduard Shetty , 07/18/2025 10:00:00 AM, [address], [address], [place], [address], Insurance Providers Payer Name Payer Address Payer Phone Subscriber Number Group Number Insured Name Patient Relationship to Insured Coverage Start Date Coverage End Date MEDICARE OF [place] [address] [place] [address] [id number] ROSELIA ROCHA Self - patient is the insured MED[employer] ATTN CLAIMS [address] [place] [address] [id number] ROSELIA ROCHA Self - patient is the insured Medical (General) History Medical History History ICD Code CAD with stent in 2009, denies [place]-had ne gative ETT in 10/2011 HTN Kidney stones Hyperlipidemia Denies [place],DM,CVA,Lung disease,renal dise ase Asthma due to Environmental allergies Right inguinal hernia--seen by Dr. Saldana--no surgery as yet as of 02/13/2020 Screening Colonoscopy 01/2012 with a smal l tubular adenoma Surgical History Surgery Date(Month/Year) Left inguinal hernia repair-Dr. Saldana at [facility] 2012 Right knee arthroscopy
== END ==
LOC: HO.CARD 08:56
PROVIDERS: PCP Physician Assistant; Visit Provider Internal Medicine Cardiovascular Disease
DX: I77.89 Other specified disorders of arteries and arterioles (principal)
CPT/HCPCS: 93306

== ENCOUNTER → 2025-07-17 08:58 | Outpatient (BNV) | payer MEDICARE, SELFPAY | PROVIDERS: PCP Physician Assistant; Visit Provider Internal Medicine | DX: I51.7 Cardiomegaly (principal); I51.89 Other ill-defined heart diseases | CPT/HCPCS: 93306 ==

== ENCOUNTER 2025-07-22 11:54 | Outpatient (AMB) | payer MEDICARE, SELFPAY ==
--- OUTSIDE RECORDS SUMMARY | 2025-07-18 06:00 | XMS_ITS ---
Author Organization [facility] Address [address] [place] [phone] Care Team Providers Care Machine Clerical Verifier Name Role Phone Stef Page Primary Care Provider Unavailab Eduard Bowman Unavailable [phone] Allergies Allergen (clinical drug ingredient) Drug/Non Drug [...] Status Risk Notes Problem Gastroesophageal reflux disease ([id number]) GERD (gastroeso phageal reflux disease) (K21.9) Active confirmed Vital Signs Temperature 96.9 degrees Fahrenheit 07/18/20 25 Blood pressure systolic 001 mm Hg 07/18/20 25 Blood pressure diastolic 01 mm Hg 025 Height 72.25 in 07/18/2025 Weight 251.2 lbs 07/18/2025 BMI 33.83 kg/m2 07/18/2025 Procedures Procedure Date Ordered Date Performed Result Body Sit e COLONOSCOPY 07/18/2025 N/A Encounters Encounter Location Date Provider Diagnosis [facility] [address] [place] [address] 07/18/2025 Eduard Shetty Hx of adenomatous colonic [...] 07/18/2025 Preprocedural examination (ICD-10 - Z01.818) Overall, Roebrt appears well. Given his personal history of [...] Name:Eduard Kolb Diogenes , 10/07/2025 12:40:00 PM, [address] [place] [address], [id number], Progress Notes * ROSELIA ROCHADOB:1960 (65 yo M)Acc No.[id number]:07/18/2025 Progress Notes Patient: ROSELIA VILLA Provider: Cleo Shetty MD :1960 A ge:65 Y S ex:Male Date:07/18/2025 Address:[address] [place] [address] Pcp:Stef Page Subjective: * Chief Complaints: * [...] C AD with stent in 2009, denies DE-had negative ETT in 10/2011- [facility], HTN- sees Dr. Torres, Kidney stones, Hyperlipidemia, Denies DE,DM,CVA,Lung disease,renal disease, Asthma due to Environmental allergies, Right inguinal hernia- seen by Dr. Saldana- no surgery as yet as of 02/13/2020, Screening Colonoscopy 01/2012 with a small tubular adenoma, Blood pressure regulation issues- seeing Dr. Torres, Colonoscopy 03/2020 with a small adenoma and a tubulovilloous adenoma removed. * Surgical History: L eft inguinal hernia repair-Dr. Saldana at [facility] 2011, Right knee arthroscopy , Basal [...] ietary management education, guidance, and counseling, B DE management provided Y es. Screenings: F all [...] Pending * Provider: Cleo Shetty MD Date: 07/18/2025 Generated for Praful wilson/Gordo/Barbiitting on: 07/22/2025 02:36 PM EDT History and Physical Notes * HPI [...]
--- OUTSIDE RECORDS SUMMARY | 2025-07-22 14:36 | XMS_ITS | Patient Health Record ---
Author Organization [facility] Address [address] [place] [address] Care Team Providers Care Rehabilitation Aide/Scheduler Name Role Phone Stef Page Primary Care Provider UnavailEduard Chaudhary Unavailable [phone] Allergies Allergen (clinical drug ingredient) Drug/Non Drug Allergy documented on EMR Reaction Allergy Type Onset Date Status enviormental (uncoded) Unknown Allergy Active Reason For Referral No Information Medications Medication SIG (Take, Route, Frequency, Duration) Notes Start Date End Date Status Aspir-81 once a day Active Atorvastatin Calcium 80 MG 1 tablet Orally Once a day Active Omeprazole 20 MG 1 Orally Once a day 07/18/2025 Active Losartan Potassium 25 MG 1 tablet Orally Once a day Active Albuterol Sulfate HFA as needed Active Immunizations Vaccine Route Administration Date Status Comme nts Influenza Unknown 07/31/2019 Administered Influenza Unknown 07/18/2024 Administered Social History Alcohol Screen Question Answer [...] lcohol No smoking, has occasional a lcohol No smoking, has occasional a lcohol Problems Problem Type SNOMED Code ICD Code Onset Dates Problem Status W/U Status Risk Notes Problem 792176508 Encounter for screening for malignant neoplasm of colon (Z12.11) Active confirmed Problem 184803107977199 Preprocedural examination (Z01.818) Active confirmed Problem 0987473553433 Family history of colorectal cancer (Z80.0) Active confirmed Problem Gastroesophageal reflux disease (316847705) GERD (gastroesophagea l reflux disease) (K21.9) Active confirmed Problem 506179329 Hx of adenomatous colonic polyps (Z86.010) Active confirmed Vital Signs Temperature 96.9 degrees Fahrenheit 07/18/2025 Blood pressure diastolic 01 mm Hg 07/18/2025 Height 72.25 in 07/18/2025 Blood pressure systolic 001 mm Hg 07/18/2025 Weight 251.2 lbs 07/18/2025 BMI 33.83 kg/m2 07/18/2025 Procedures Procedure Date Ordered Date Performed Result Body Sit e COLONOSCOPY 07/18/2025 N/A Encounters Encounter Location Date Provider Diagnosis [facility] [address] [place] [address] 07/18/2025 Eduard Shetty Hx of adenomatous colonic polyps Z86.010 ; Encounter for screening for malignant neoplasm of colon Z12.11 ; Preprocedural examination Z01.818 ; Family history of colorectal cancer Z80.0 and GERD (gastroesophageal reflux disease) K21.9 Assessments Encounter Date Diagnosis (ICD Code) Assessment Notes Treatment Notes Treatment Clinical Notes Section Notes 07/18/2025 Encounter for screening for malignant neoplasm [...] keep you advised of his progress. 07/18/2025 Hx of adenomatous colonic polyps (ICD-10 [...] advised of his progress. Plan Of Treatment Pending Test Test Name Order Date COLONOSCOPY 07/18/2025 Future Test Test Name Order Date COLONOSCOPY 01/26/2012 COLONOSCOPY 02/13/2020 Next Appt Details Provider Name:Eduard Shetty , 10/07/2025 12:40:00 PM, [address] [place] [address], [id number], Insurance Providers Payer Name Payer Address Payer Phone Subscriber Number Group Number Insured Name Patient Relationship to Insured Coverage Start Date Coverage End Date MED[place]ARE OF [place] [address] [facility] [place] [address] [id number] ROSELIA ROCHA Self - patient is the insured 4 [employer] ATTN CLAIMS [address] [place] [address] [id number] ROSELIA ROCHA Self - patient is the insured Medical (General) History Medical History History ICD Code CAD with stent in 2009, denies [place]-had ne gative ETT in 10/2011- Brian Irwin HTN- sees Dr. Torres Kidney stones Hyperlipidemia Denies [place],DM,CVA,Lung disease,renal dise ase Asthma due to Environmental allergies Right inguinal hernia- seen by Dr. Saldana- no surgery as yet as of 02/13/2020 Screening Colonoscopy 01/2012 with a smal l tubular adenoma Blood pressure regulation issues- seeing Dr. Torres Colonoscopy 03/2020 with a small adenoma and a tubulovilloous adenoma removed Surgical History Surgery Date(Month/Year) Basal cell skin cancer Right knee arthroscopy Left inguinal hernia repair-Dr. Saldana at [place] [address]
== END 2025-07-22 11:55 | disposition home or self-care (01) ==
LOC: HO.HMGAL 11:54
PROVIDERS: PCP Physician Assistant; Visit Provider Registered Nurse Emergency
DX: J30.89 Other allergic rhinitis (principal)
CPT/HCPCS: 95117; 95165

== ENCOUNTER 2025-08-05 10:06 | Outpatient (AMB) | payer MEDICARE, SELFPAY ==
--- OUTSIDE RECORDS SUMMARY | 2025-07-18 06:00 | XMS_ITS ---
Author Organization [facility] Address [address] [place] [id number] Care Team Providers Care Commercial Horticulture Instructor Name Role Phone Stef Page Primary Care Provider Unavailab Eduard Bowman Unavailable [phone] Allergies Allergen (clinical drug ingredient) Drug/Non Drug Allergy documented on EMR Reaction Allergy Type Onset Date Status enviormental (uncoded) Unknown Allergy Active REASON FOR VISIT Patient presents today for a screening colonoscopy Medications Medication SIG (Take, Route, Frequency, Duration) Notes Start Date End Date Status Aspir-81 once a day Active Atorvastatin Calcium 80 MG 1 tablet Orally Once a day Active Omeprazole 20 MG 1 Orally Once a day 07/18/2025 Active Losartan Potassium 25 MG 1 tablet Orally Once a day Active Albuterol Sulfate HFA as needed Active Social History Alcohol Screen Question Answer Notes [...] Notes: No smoking, has occasional a lcohol Problems Problem Type SNOMED Code ICD Code Onset Dates Problem Status W/U Status Risk Notes Problem Gastroesophageal reflux disease (133341364) GERD (gastroeso phageal reflux disease) (K21.9) Active confirmed Vital Signs Temperature 96.9 degrees Fahrenheit 07/18/20 25 Blood pressure systolic 001 mm Hg 07/18/20 25 Blood pressure diastolic 01 mm Hg 025 Height 72.25 in 07/18/2025 Weight 251.2 lbs 07/18/2025 BMI 33.83 kg/m2 07/18/2025 Procedures Procedure Date Ordered Date Performed Result Body Sit e COLONOSCOPY 07/18/2025 N/A Encounters Encounter Location Date Provider Diagnosis [facility] [address] [place] [address] 07/18/2025 Eduard Shetty Hx of adenomatous colonic polyps Z86.010 ; Encounter for screening for malignant neoplasm of colon Z12.11 ; Preprocedural examination Z01.818 ; Family history of colorectal cancer Z80.0 and GERD (gastroesophageal reflux disease) K21.9 Assessments Encounter Date Diagnosis (ICD Code) Assessment Notes Treatment Notes Treatment Clinical Notes Section Notes 07/18/2025 Hx of adenomatous colonic polyps (ICD-10 - Z86.010) Overall, Robert appears well. Given his personal history of colon polyps, his last colonoscopy being over 5 years ago, and his brothers history of some type of GI malignancy as well, I did recommend a follow-up colonoscopy for Robert. We did review the rationale for that in regard to colorectal cancer prevention. He was advised not to take any aspirin on the morning of the procedure. We did review his history of reflux which seems to be relatively new for him. It is not associated with any worrisome symptoms such as dysphagia or anorexia. Since the symptoms are new and responding well to omeprazole I do not feel strongly about him having an upper endoscopy. However, I did advise him that he should try to see if he can stop the daily use of omeprazole and just use it as needed. I did advise him that if he does need it daily he should let me know and we can add an upper endoscopy on to the colonoscopy for the same day. I did advise him that the other option would be to stop eating jalapeno peppers but that sounds like it would be impossible for him since he loves them . Full consent has been obtained from him for the colonoscopy, as well as the upper endoscopy if need be, including risks of bleeding and perforation. Both procedures will be done with monitored anesthesia care. Of note, he has an appointment to see Dr. Torres in August for follow-up of his blood pressure issues and we shall schedule the procedure for sometime after that such that we can get a clearance from Dr. Torres. Robert was comfortable with this plan. Thank you again for allowing me to participate in Robert's care. I shall continue to keep you advised of his progress. 07/18/2025 Encounter for screening for malignant neoplasm of colon (ICD-10 - Z12.11) Overall, Robert appears well. Given his personal history of colon polyps, his last colonoscopy being over 5 years ago, and his brothers history of some type of GI malignancy as well, I did recommend a follow-up colonoscopy for Robert. We did review the rationale for that in regard to colorectal cancer prevention. He was advised not to take any aspirin on the morning of the procedure. We did review his history of reflux which seems to be relatively new for him. It is not associated with any worrisome symptoms such as dysphagia or anorexia. Since the symptoms are new and responding well to omeprazole I do not feel strongly about him having an upper endoscopy. However, I did advise him that he should try to see if he can stop the daily use of omeprazole and just use it as needed. I did advise him that if he does need it daily he should let me know and we can add an upper endoscopy on to the colonoscopy for the same day. I did advise him that the other option would be to stop eating jalapeno peppers but that sounds like it would be impossible for him since he loves them . Full consent has been obtained from him for the colonoscopy, as well as the upper endoscopy if need be, including risks of bleeding and perforation. Both procedures will be done with monitored anesthesia care. Of note, he has an appointment to see Dr. Torres in August for follow-up of his blood pressure issues and we shall schedule the procedure for sometime after that such that we can get a clearance from Dr. Torres. Robert was comfortable with this plan. Thank you again for allowing me to participate in Robert's care. I shall continue to keep you advised of his progress. 07/18/2025 Preprocedural examination (ICD-10 - Z01.818) Overall, Robert appears well. Given his personal history of colon polyps, his last colonoscopy being over 5 years ago, and his brothers history of some type of GI malignancy as well, I did recommend a follow-up colonoscopy for Robert. We did review the rationale for that in regard to colorectal cancer prevention. He was advised not to take any aspirin on the morning of the procedure. We did review his history of reflux which seems to be relatively new for him. It is not associated with any worrisome symptoms such as dysphagia or anorexia. Since the symptoms are new and responding well to omeprazole I do not feel strongly about him having an upper endoscopy. However, I did advise him that he should try to see if he can stop the daily use of omeprazole and just use it as needed. I did advise him that if he does need it daily he should let me know and we can add an upper endoscopy on to the colonoscopy for the same day. I did advise him that the other option would be to stop eating jalapeno peppers but that sounds like it would be impossible for him since he loves them . Full consent has been obtained from him for the colonoscopy, as well as the upper endoscopy if need be, including risks of bleeding and perforation. Both procedures will be done with monitored anesthesia care. Of note, he has an appointment to see Dr. Torres in August for follow-up of his blood pressure issues and we shall schedule the procedure for sometime after that such that we can get a clearance from Dr. Torres. Robert was comfortable with this plan. Thank you again for allowing me to participate in Robert's care. I shall continue to keep you advised of his progress. 07/18/2025 Family history of colorectal cancer (ICD-10 - Z80.0) Overall, Robert appears well. Given his personal history of colon polyps, his last colonoscopy being over 5 years ago, and his brothers history of some type of GI malignancy as well, I did recommend a follow-up colonoscopy for Robert. We did review the rationale for that in regard to colorectal cancer prevention. He was advised not to take any aspirin on the morning of the procedure. We did review his history of reflux which seems to be relatively new for him. It is not associated with any worrisome symptoms such as dysphagia or anorexia. Since the symptoms are new and responding well to omeprazole I do not feel strongly about him having an upper endoscopy. However, I did advise him that he should try to see if he can stop the daily use of omeprazole and just use it as needed. I did advise him that if he does need it daily he should let me know and we can add an upper endoscopy on to the colonoscopy for the same day. I did advise him that the other option would be to stop eating jalapeno peppers but that sounds like it would be impossible for him since he loves them . Full consent has been obtained from him for the colonoscopy, as well as the upper endoscopy if need be, including risks of bleeding and perforation. Both procedures will be done with monitored anesthesia care. Of note, he has an appointment to see Dr. Torres in August for follow-up of his blood pressure issues and we shall schedule the procedure for sometime after that such that we can get a clearance from Dr. Torres. Robert was comfortable with this plan. Thank you again for allowing me to participate in Robert's care. I shall continue to keep you advised of his progress. 07/18/2025 GERD (gastroesophageal reflux disease) (ICD-10 - K21.9) You can try to come off the omeprazole . If you need it frequently let me know and we can do an upper endoscopy on the same day as the colonoscopy Overall, Robert appears well. Given his personal history of colon polyps, his last colonoscopy being over 5 years ago, and his brothers history of some type of GI malignancy as well, I did recommend a follow-up colonoscopy for Robret. We did review the rationale for that in regard to colorectal cancer prevention. He was advised not to take any aspirin on the morning of the procedure. We did review his history of reflux which seems to be relatively new for him. It is not associated with any worrisome symptoms such as dysphagia or anorexia. Since the symptoms are new and responding well to omeprazole I do not feel strongly about him having an upper endoscopy. However, I did advise him that he should try to see if he can stop the daily use of omeprazole and just use it as needed. I did advise him that if he does need it daily he should let me know and we can add an upper endoscopy on to the colonoscopy for the same day. I did advise him that the other option would be to stop eating jalapeno peppers but that sounds like it would be impossible for him since he loves them . Full consent has been obtained from him for the colonoscopy, as well as the upper endoscopy if need be, including risks of bleeding and perforation. Both procedures will be done with monitored anesthesia care. Of note, he has an appointment to see Dr. Torres in August for follow-up of his blood pressure issues and we shall schedule the procedure for sometime after that such that we can get a clearance from Dr. Torres. Robert was comfortable with this plan. Thank you again for allowing me to participate in Robert's care. I shall continue to keep you advised of his progress. Plan Of Treatment Treatment Notes Assessment Notes GERD (gastroesophageal reflux disease) Y ou can try to come off the omeprazole . If you need it frequently let me know and we can do an upper endoscopy on the same day as the colonoscopy Pending Test Test Name Order Date COLONOSCOPY 07/18/2025 Next Appt Details Provider Name:Eduard Kolb Diogenes , 10/07/2025 12:40:00 PM, [address] [place] [address], [id number], Progress Notes * ROSELIA ROCHADOB:1960 (65 yo M)Acc No.[id number]:07/18/2025 Progress Notes Patient: ROSELIA VILLA Provider: Cleo Shetty MD :1960 A ge:65 Y S ex:Male Date:07/18/2025 Address:[address] [place] [address] Pcp:Stef Page Subjective: * Chief Complaints: * 1 . Patient presents today for a screening colonoscopy. * HPI: i ncontinence: I saw Robert in consultation today in regard to further evaluation of his gastroesophageal reflux, personal history of colon polyps, family history of some type of intestinal malignancy in his brother, and discussion of colorectal cancer screening. I last saw Robert in March 2020, at which time he underwent a follow-up colonoscopy with removal of a small tubular adenoma and a small tubulovillous adenoma. Since that time he has been feeling well from a GI standpoint. His bowel movements have been regular and without any signs of bleeding. He denies any abdominal pain, jaundice, nor unintentional weight loss. He describes that his brother of some type of GI malignancy, possibly originating in the appendix. He has been having episodes of reflux over at least the course of this year. He relates this to eating jalapeno peppers every day. He has been using omeprazole regularly with good relief of his reflux symptoms. He denies any dysphagia, anorexia, early satiety, nausea, nor vomiting. He has never had an upper endoscopy. * Medical History: C AD with stent in 2009, denies AR-had negative ETT in 10/2011- [facility], HTN- sees Dr. Torres, Kidney stones, Hyperlipidemia, Denies AR,DM,CVA,Lung disease,renal disease, Asthma due to Environmental allergies, Right inguinal hernia- seen by Dr. Saldana- no surgery as yet as of 02/13/2020, Screening Colonoscopy 01/2012 with a small tubular adenoma, Blood pressure regulation issues- seeing Dr. Torres, Colonoscopy 03/2020 with a small adenoma and a tubulovilloous adenoma removed. * Surgical History: L eft inguinal hernia repair-Dr. Saldana at [facility] 2011, Right knee arthroscopy , Basal cell skin cancer . * Family History: F ather: . M other: . Brother 58 yo - colon cancer that spread--started in appendix but metastatic. No family history of liver cancer. * Social History: T obacco Use: T obacco Use/Smoking A re you a: former smoker , How long has it been since you last smoked?: > 10 years. D rugs/Alcohol: A lcohol Screen D id you have a drink containing alcohol in the past year? Y es, H ow often did you have a drink containing alcohol in the past year? 2 to 3 times a week (3 points), H ow many drinks did you have on a typical day when you were drinking in the past year??1 or 2 drinks (0 point), H ow often did you have 6 or more drinks on one occasion in the past year? N ever (0 point), P oints 3 , I nterpretation N egative. N o smoking, has occasional alcohol. * Medications: T aking Omeprazole 20 MG Capsule Delayed Release 1 Orally Once a day , Taking Aspir-81 once a day , Taking Atorvastatin Calcium 80 MG Tablet 1 tablet Orally Once a day , Taking Losartan Potassium 25 MG Tablet 1 tablet Orally Once a day , Taking Albuterol Sulfate HFA , Notes to Pharmacist: as needed, Medication List reviewed and reconciled with the patient * Allergies: E nviormental. Objective: * Vitals: W t:251.2lbs, Ht: 72.25 in, BMI:33.83Index, BP:001/01mm Hg, Temp:96.9, Wt-k.94. Assessment: * Assessment: 1. H x of adenomatous colonic polyps - Z86.010 (Primary) 2 . E ncounter for screening for malignant neoplasm of colon - Z12.11 3 . P reprocedural examination - Z01.818 4 . F amily history of colorectal cancer - Z80.0 5 . G ERD (gastroesophageal reflux disease) - K21.9 Overall, Robert appears well. G iven his personal history of colon polyps, his last colonoscopy being over 5 years ago, and his brothers history of some type of GI malignancy as well, I did recommend a follow-up colonoscopy for Robert. We did review the rationale for that in regard to colorectal cancer prevention. He was advised not to take any aspirin on the morning of the procedure. We did review his history of reflux which seems to be relatively new for him. It is not associated with any worrisome symptoms such as dysphagia or anorexia. Since the symptoms are new and responding well to omeprazole I do not feel strongly about him having an upper endoscopy. However, I did advise him that he should try to see if he can stop the daily use of omeprazole and just use it as needed. I did advise him that if he does need it daily he should let me know and we can add an upper endoscopy on to the colonoscopy for the same day. I did advise him that the other option would be to stop eating jalapeno peppers but that sounds like it would be impossible for him since he loves them . Full consent has been obtained from him for the colonoscopy, as well as the upper endoscopy if need be, including risks of bleeding and perforation. Both procedures will be done with monitored anesthesia care. Of note, he has an appointment to see Dr. Torres in August for follow-up of his blood pressure issues and we shall schedule the procedure for sometime after that such that we can get a clearance from Dr. Torres. Robert was comfortable with this plan. Thank you again for allowing me to participate in Robert's care. I shall continue to keep you advised of his progress. Plan: * Treatment: 2.?Encounter for screening for malignant neoplasm of colon?Procedure: COLONOSCOPY* with MAC. Do not take aspiri n on the morning of the colonoscopy.Need clearance from Dr. Linda for 10/07/25 at 12:40 pmmiralax 3.?Family history of colorectal cancer?Procedure: COLONOSCOPY* with MAC. Do not take aspiri n on the morning of the colonoscopy.Need clearance from Dr. Linda for 10/07/25 at 12:40 pmmiralax 4.?GERD (gastroesophageal reflux disease)? Notes: You can try to come off the omeprazole . If you need it frequently let me know and we can maxwell upper endoscopy on the same day as the colonoscopy?? * Procedure Codes: 4 [id number] DIAGNOSTIC COLONOSCOPY * Preventive Medicine: Counseling: C are goal follow-up plan: A ephraim Normal BMI Follow-up D ietary management education, guidance, and counseling, B AR management provided Y es. Screenings: F all Risk Screening F all Risk Assessment: N o falls in the past year, S creening: N o falls in the past year, A ssessment: N ot performed, no reason specified, P ammy of Care: N ot documented, no reason specified. * * The named appointment provid er may or may not be the originator of this progress note, and it is not deemed complete until electronically signed by the appointment provider. Sign off status: Pending * Provider: Cleo Shetty MD Date: 0 07/18/2025 Generated for Praful wilson/Gordo/Barbiitting on: 1 11:45 AM EDT History and Physical Notes * HPI (History of Present Illness) Category Sub-Category Detail Notes Category Not es incontinence I saw Robert in consultation today in regard to further evaluation of his gastroesophageal reflux, personal history of colon polyps, family history of some type of intestinal malignancy in his brother, and discussion of colorectal cancer screening. I last saw Robert in March 2020, at which time he underwent a follow-up colonoscopy with removal of a small tubular adenoma and a small tubulovillous adenoma. Since that time he has been feeling well from a GI standpoint. His bowel movements have been regular and without any signs of bleeding. He denies any abdominal pain, jaundice, nor unintentional weight loss. He describes that his brother of some type of GI malignancy, possibly originating in the appendix. He has been having episodes of reflux over at least the course of this year. He relates this to eating jalapeno peppers every day. He has been using omeprazole regularly with good relief of his reflux symptoms. He denies any dysphagia, anorexia, early satiety, nausea, nor vomiting. He has never had an upper endoscopy.
--- OUTSIDE RECORDS SUMMARY | 2025-08-05 11:45 | XMS_ITS | Patient Health Record ---
Author Organization [facility] Address [address] [place] [address] Care Team Providers Care Manager Icu Name Role Phone Stef Page Primary Care Provider UnavailEduard Chaudhary Unavailable [phone] Allergies Allergen (clinical drug ingredient) Drug/Non Drug [...] Problem Status W/U Status Risk Notes Problem 927713252 Encounter for screening for malignant neoplasm of colon (Z12.11) Active confirmed Problem 159337380108605 Preprocedural examination (Z01.818) Active confirmed Problem 6602722146760 Family history of colorectal cancer (Z80.0) Active confirmed Problem Gastroesophageal reflux disease (250012819) GERD (gastroesophagea l reflux disease) (K21.9) Active confirmed Problem 621515737 Hx of adenomatous colonic polyps (Z86.010) Active confirmed Vital Signs Temperature 96.9 degrees Fahrenheit 07/18/2025 Blood pressure diastolic 01 mm Hg 07/18/2025 Height 72.25 in 07/18/2025 Blood pressure systolic 001 mm Hg 07/18/2025 Weight 251.2 lbs 07/18/2025 BMI 33.83 kg/m2 07/18/2025 Procedures Procedure Date Ordered Date Performed Result Body Sit e COLONOSCOPY 07/18/2025 N/A Encounters Encounter Location Date Provider Diagnosis [facility] [address] [place] [address] 07/18/2025 Eduard Shetty Hx of adenomatous colonic [...] Provider Name:Eduard Shetty , 10/07/2025 12:40:00 PM, [address] [place] [address], [id number], Insurance Providers Payer Name Payer Address Payer Phone Subscriber Number Group Number Insured Name Patient Relationship to Insured Coverage Start Date Coverage End Date MED[place]ARE OF [place] [address] [place] [address] [id number] ROSELIA ROCHA Self - patient is the insured 4 MED[employer] ATTN CLAIMS [address] [place] [address] [id number] ROSELIA ROCHA Self - patient is the insured Medical (General) History Medical History History ICD Code CAD with stent in 2009, denies [place]-had ne gative ETT in 10/2011- Brian Irwin HTN- sees Dr. Torres Kidney stones Hyperlipidemia Denies [place],DM,CVA,Lung disease,renal dise ase Asthma due to Environmental [...] arthroscopy Left inguinal hernia repair-Dr. Saldana at [place] [address]
== END 2025-08-05 10:51 | disposition home or self-care (01) ==
LOC: HO.HMGAL 10:06
PROVIDERS: PCP Physician Assistant; Visit Provider Registered Nurse Emergency
DX: J30.89 Other allergic rhinitis (principal)
CPT/HCPCS: 95117; 95165

== ENCOUNTER 2025-09-02 09:20 | Outpatient (AMB) | payer MEDICARE, SELFPAY ==
--- OUTSIDE RECORDS SUMMARY | 2025-09-02 10:25 | XMS_ITS | Patient Health Record ---
Author Organization [facility] Address [address] [place] [address] Care Team Providers Care Mutuel Clerk Name Role Phone Stef Page Primary Care Provider UnavailEduard Chaudhary Unavailable [phone] Allergies Allergen (clinical drug ingredient) Drug/Non Drug [...] Problem Status W/U Status Risk Notes Problem Screening for malignant neoplasm of colon (026419567) Encounter for screening for malignant neoplasm of colon (Z12.11) Active confirmed Problem Preprocedural examination (342261321053289) Preprocedural examination (Z01.818) Active confirmed Problem Family history of colorectal cancer (6011925563563) Family history of colorectal cancer (Z80.0) Active confirmed Problem Gastroesophageal reflux disease (273921206) GERD (gastroesophagea l reflux disease) (K21.9) Active confirmed Problem History of adenomatous polyp of colon (411288412) Hx of adenomatous colonic polyps (Z86.010) Active confirmed Vital Signs Temperature 96.9 degrees Fahrenheit 07/18/2025 Blood pressure diastolic 01 mm Hg 07/18/2025 Height 72.25 in 07/18/2025 Blood pressure systolic 001 mm Hg 07/18/2025 Weight 251.2 lbs 07/18/2025 BMI 33.83 kg/m2 07/18/2025 Procedures Procedure Date Ordered Date Performed Result Body Sit e COLONOSCOPY 07/18/2025 N/A Encounters Encounter Location Date Provider Diagnosis [facility] [address] [place] [address] 07/18/2025 Eduard Shetty Hx of adenomatous colonic polyps Z86.010 ; GERD (gastroesophageal reflux disease) K21.9 ; Encounter for screening for malignant neoplasm of colon Z12.11 ; Preprocedural examination Z01.818 and Family history of colorectal cancer Z80.0 Assessments Encounter Date Diagnosis (ICD Code) Assessment Notes Treatment Notes Treatment Clinical Notes Section Notes 07/18/2025 GERD (gastroesophageal reflux disease) (ICD-10 - [...] again for allowing me to participate in Robret's care. I shall continue to keep you [...] Provider Name:Eduard Shetty , 10/07/2025 12:40:00 PM, [address] [place] [address] , [place], [place], [id number], Insurance Providers Payer Name Payer Address Payer Phone Subscriber Number Group Number Insured Name Patient Relationship to Insured Coverage Start Date Coverage End Date MED[place]ARE OF [place] [address] [place] [address] [id number] ROSELIA ROCHA Self - patient is the insured 4 MED[employer] ATTN CLAIMS [address] [place] [address] [id number] AJ ROSELIA Self - patient is the insured Medical (General) History Medical History History ICD Code CAD with stent in 2009, denies MD-had ne rafael ETT in 10/2011- Brian Irwin HTN- sees Dr. Torres Kidney stones Hyperlipidemia Denies MD,DM,CVA,Lung disease,renal dise ase Asthma due to Environmental [...] arthroscopy Left inguinal hernia repair-Dr. Saldana at [place] [address]
== END 2025-09-02 09:21 | disposition home or self-care (01) ==
LOC: HO.HMGAL 09:20
PROVIDERS: PCP Physician Assistant; Visit Provider Registered Nurse Emergency
DX: J30.89 Other allergic rhinitis (principal)
CPT/HCPCS: 95117; 95165

== ENCOUNTER 2025-09-11 07:49 | Outpatient (AMB) | payer MEDICARE, SELFPAY ==
--- OUTSIDE RECORDS SUMMARY | 2025-09-11 07:53 | XMS_ITS | Patient Health Record ---
Author Organization [facility] Address [address] [place] [address] Care Team Providers Care Real Estate Intern Name Role Phone Stef Page Primary Care Provider UnavailEduard Chaudhary Unavailable [phone] Allergies Allergen (clinical drug ingredient) Drug/Non Drug [...] Problem Screening for malignant neoplasm of colon (998338368) Encounter for screening for malignant neoplasm of colon (Z12.11) Active confirmed Problem Preprocedural examination (722551181361388) Preprocedural examination (Z01.818) Active confirmed Problem Family history of colorectal cancer (6307922877430) Family history of colorectal cancer (Z80.0) Active confirmed Problem Gastroesophageal reflux disease (148567608) GERD (gastroesophagea l reflux disease) (K21.9) Active confirmed Problem History of adenomatous polyp of colon (146372890) Hx of adenomatous colonic polyps (Z86.010) Active confirmed Vital Signs Temperature 96.9 degrees Fahrenheit 07/18/2025 Blood pressure diastolic 01 mm Hg 07/18/2025 Height 72.25 in 07/18/2025 Blood pressure systolic 001 mm Hg 07/18/2025 Weight 251.2 lbs 07/18/2025 BMI 33.83 kg/m2 07/18/2025 Procedures Procedure Date Ordered Date Performed Result Body Sit e COLONOSCOPY 07/18/2025 N/A Encounters Encounter Location Date Provider Diagnosis [facility] [address] [place] [address] 07/18/2025 Eduard Shetty Hx of adenomatous colonic [...] Name:Eduard Shetty , 10/07/2025 12:40:00 PM, [address] [place] [address] , [place], [place], [phone], Insurance Providers Payer Name Payer Address Payer Phone Subscriber Number Group Number Insured Name Patient Relationship to Insured Coverage Start Date Coverage End Date MED[place]ARE OF [place] [address] [place] [address] [phone] [id number] ROSELIA ROCHA Self - patient is the insured 4 MEDEX ATTN CLAIMS [address] [place] [address] [id number] AJ ROSELIA Self - patient is the insured Medical (General) History Medical History History ICD Code CAD with stent in 2009, denies [place]-had ne rafael ETT in 10/2011- Brian Irwin HTN- sees Dr. Torres Kidney stones Hyperlipidemia Denies [place],DM,CVA,Lung disease,renal dise ase Asthma due to Environmental [...] arthroscopy Left inguinal hernia repair-Dr. Saldana at [place] [address]
[2025-09-11 08:04] VITALS: BP 156/98; PULSE 89; TEMP 36.1; O2SAT 95; BMI 33.9
--- NOTE | 2025-09-11 08:04 | MHC.PC.OV ---
Vital Signs 09/11/25 08:04 Height 6 ft 1 in Weight 257 lb BMI 33.9 BP 156/98 H Blood Pressure Location Lt brachial Position Sitting Pulse 89 Pulse Source Pulse Oximeter Temp 97.0 F Temp Source Temporal Artery Scan Pulse Oximetry (%) 95 Oxygen Delivery Method Room Air Intake Visit Reasons: 6 month Allergies cats Allergy (Intermediate, Uncoded 09/11/25 08:11) sneezing, wheezing, SOB dogs Allergy (Intermediate, Uncoded 09/11/25 08:11) Sneezing, wheezing dust Allergy (Intermediate, Uncoded 09/11/25 08:11) sneezing, wheezing enviromental Allergy (Intermediate, Uncoded 09/11/25 08:11) sneezing, wheezing animals Adverse Reaction (Unknown, Uncoded 09/11/25 08:11) cats and dogs Medication List - Last Reconciled 09/11/25 by Stef Page PA-C albuterol sulfate 90 mcg/actuation 1 inh inhalation QID 30 days aspirin (Adult Low Dose Aspirin) 81 mg PO DAILY atorvastatin 80 mg PO DAILY losartan 12.5 mg (1/2 x 25 mg) PO DAILY omeprazole 20 mg PO DAILY 90 days sildenafil 100 mg PO DAILY PRN 7 days Tobacco use date assessed: 09/11/25 Fall risk assessment: No Falls in past year Last assessed Fall Risk: 09/11/25 Dental Screening Dental Screen Date: 09/11/25 Did you have a dental visit in the last 12 months?: Yes Did you have a dental problem in the last 6 months where you did not have access to dental care?: No Was dental information given to patient?: Patient has dentist HPI 6 month HPI Details Jose A is a 65 year male here today for a follow-up visit.? Patient has a past medical history significant for coronary artery disease, hypertension, asthma. .. Class 1 Obesity: Has unfortunately gained weight since last office visit. Patient reports recently spent time [place] does report dietary indiscretion Patient does understand his BMI is over 30 will try to be more physically active an Adapt to better eating habits to reduce his weight. Hypertension:? Patient followed by assessment clinician and has been having labile blood pressures. He reports a history of essential hypertension with somewhat labile blood pressure readings, experiencing fluctuations where it sometimes drops and presents with symptoms like dizziness and visual disturbances, particularly when standing from a sitting position. He reports that the hypotensive episodes are more frequent in hot weather and cause him to be unable to function. His current blood pressure reading is 156/98 mmHg, and he has gained 10 pounds since his last visit. The onset of these symptoms appears to have coincided with his fci approximately three years ago. He continues to manage this condition with Losartan, though he has not reached a satisfactory stabilization of his blood pressure levels. Recently underwent renal artery ultrasound that did not show renal artery stenosis. Also did go through a CT angiogram which did show moderate coronary artery disease .. CAD:? Patient is followed by Cardiology on annual basis.? LDL recently at 83. Cardiology would like optimal LDL to be below 60.? He denies any palpitations, chest discomforts. .. Thoracic enlargement:? Patient most recent echocardiogram showing enlarged thoracic aorta enlargement at 4.1 cm.? At this time will be followed on annual basis. .. Asthma:? He reports asthma is fairly well controlled.? He is getting allergy shots now through new provider.? He reports his asthma does exacerbate during allergy seasons. He also sees an marbleizer and gets allergy injections on a weekly basis now. Has been recently started on singular which has been helpful. [facility] Medical History Microscopic hematuria Back pain Surgical History Stented coronary artery History of right knee surgery History of dental surgery Family History Father No problems noted. Mother Hepatitis C Brother Colon cancer Sister Rectal polyp Social History Housing: House Alcohol intake: current Alcohol intake frequency: a few times a week Alcohol type: beer and wine Patient Tobacco Use Status: Former Tobacco user Tobacco use type: Cigarette Years Smoked: 30 +/- e-Cigarette/Vaping Use: Never Used Second Hand Smoke Exposure: No service: Yes Current occupational status: retired Cognitive needs: No Hearing needs: No Vision needs: Yes Questionnaire PHQ-9 Over the last 2 weeks, how often have you been bothered by any of the following problems? 1. Little interest or pleasure in doing things: not at all 2. Feeling down, depressed, or hopeless: not at all 3. Trouble falling or staying asleep, or sleeping too much: not at all 4. Feeling tired or having little energy: not at all 5. Poor appetite or overeating: not at all 6. Feeling bad about yourself - or that you are a failure or have let yourself or your family down: not at all 7. Trouble concentrating on things, such as reading the newspaper or watching television: not at all 8. Moving or speaking so slowly that other people could have noticed. Or the opposite - being so fidgety or restless that you have been moving around a lot more than usual: not at all 9. Thoughts that you would be better off or of hurting yourself in some way: not at all Total score: 0 Source: Developed by Drs. Eduard Muhammad, Cecilia Casarez, Chadwick Berg and colleagues, with an educational tal from [employer]. Thrive Questionnaire Date Thrive assessed: 09/04/25 I am a: Patient What is your living situation today?: I have a steady place to live Within the past 12 months, did the food you bought not last and you didn't have the money to get more?: Never true Within the past 12 months, did you worry whether your food would run out before you got money to buy more?: Never true Do you have trouble paying for medicines?: No Do you have trouble getting transportation to medical appointments?: No Do you have trouble paying your heating and electricity bill?: No Do you have trouble taking care of your child, family member or friend?: No Do you have trouble with day-to-day activities such as bathing, preparing meals, shopping, managing finances, etc.?: No Are you currently unemployed and looking for a job?: No Are you interested in more education?: No Please select the resources that you would like help with: None Currently or been in a relationship where the following occur: No concerns reported THRIVE Score: 0 AUDIT C Alcohol Use Questionnaire (AUDIT-C) 1. How often do you have a drink containing alcohol?: 2-3 times a week 2. How many drinks containing alcohol do you have on a typical day when you are drinking?: 1 or 2 3. How often do you have six or more drinks on one occasion?: Never Total Score: 3 SAEED-7 AMB Questionnaire SAEED-7 Date SAEED - 7 assessed: 03/12/25 Feeling nervous, anxious, or on edge: 0 = Not at all Not being able to stop or control worryin = Not at all Worrying too much about different things: 0 = Not at all Trouble relaxin = Not at all Being so restless that it is hard to sit still: 0 = Not at all Becoming easily annoyed or irritable: 0 = Not at all Feeling afraid as if something awful might happen: 0 = Not at all Total SAEED-7 score (0-4 normal; 5-9 mild; 10-14 moderate; 15-21 severe): 0 Source: Developed by Drs. Eduard uMhammad, Cecilia Casarez, Chadwick Berg and colleagues, with an educational tal from [employer]. Review of Systems Const Denies headache(s) Eyes Denies loss of vision ENT Denies vertigo, Denies dizziness, Denies headache(s) and Denies sore throat Card Denies chest pain, Denies leg edema and Denies lightheadedness Resp Denies cough, Denies hemoptysis and Denies wheezing GI Denies abdominal pain, Denies melena, Denies constipation, Denies diarrhea and Denies vomiting Denies dysuria, Denies urinary frequency and Denies urinary urgency Musc Denies arthralgias, Denies joint swelling, Denies numbness and Denies tingling Neuro Denies Abnormal speech present, Denies behavioral changes, Denies vertigo, Denies dizziness, Denies headache(s), Denies loss of vision, Denies memory loss, Denies numbness and Denies tingling Psych Denies anxiety, Denies behavioral changes, Denies depression, Denies memory loss and Denies panic attacks Nick/Lymph Denies easy bleeding and Denies easy bruising Aller/Immun Denies wheezing Physical exam (Primary Care) Vital Signs: Last Vital Signs Temp 97.0 F 09/11/25 08:04 Pulse 89 09/11/25 08:04 BP 156/98 H 09/11/25 08:04 Pulse Ox 95 09/11/25 08:04 Oxygen Delivery Method Room Air 09/11/25 08:04 BMI result Body Mass Index 33.9 BMI Assessment/Plan discussion: High BMI High, discussed plan: lifestyle, weight reduction, dietary and physical activity Tobacco/Smoking Status: Tobacco use Status Tobacco use date assessed 09/11/25 09/11/25 08:07 Patient Tobacco Use Status Former Tobacco user 09/11/25 08:07 Tobacco use type Cigarette 09/11/25 08:07 e-Cigarette/Vaping Use Never Used 09/11/25 08:07 PHQ-9: PHQ-9 Score PHQ-9: Total score 0 09/11/25 12:04 Thrive Assessment: Date of Thrive Assessment Date Thrive assessed 09/04/25 09/11/25 08:07 Currently or been in a relationship where the following occur: No concerns reported Const General: healthy appearing, no acute distress, alert and awake Nutritional Appearance: well nourished Orientation/consciousness: oriented to person, oriented to place and oriented to time HENMT Ears: TM's normal bilaterally General nose exam: Normal nasal mucous membranes and turbinates present Eyes Conjunctivae: conjunctivae normal Sclerae: sclerae normal Pupils: Equal, round and reactive pupils present Neck Neck: Yes no lymphadenopathy and Yes no JVD Thyroid: Thyroid normal Carotids: no bruits Resp Effort & Inspection: normal respiratory effort and not tachypneic Auscultation: no crackles, no rales, no rhonchi and no wheezes Cardio Rate: regular rate Rhythm: regular rhythm Heart sounds: no murmurs and normal S1 and S2 GI Palpation (GI): Soft to palpation, nontender, no hepatomegaly and no splenomegaly Auscultation: normal bowel sounds Skin General skin exam: no rashes or lesions noted and dry skin Neuro General: oriented to person, oriented to place and oriented to time Cranial nerves: Yes Equal, round and reactive pupils present Speech: No Abnormal speech present Gait exam (Neuro): Normal gait present Motor exam (neuro): no tremor noted Extrem Right upper extremity: full ROM Left upper extremity: full ROM Right lower extremity: full ROM; no edema Left lower extremity: full ROM; no edema Psych Mental Status: mental status grossly normal Speech and movement: Normal speech and movement present Affect: normal affect Attitude: cooperative Thought process: Normal thought process present Coding Level of Care Code Est Pt Level 4 (09895) Diagnoses Primary hypertension I10 Hypertension type: primary hypertension Coronary artery disease involving [place] coronary artery of [place] heart without angina pectoris I25.10 Associated angina: without angina Coronary Disease-Associated Artery/Lesion type: [place] artery [place] vs. transplanted heart: [place] heart Mild persistent asthma without complication J45.30 Asthma complication type: uncomplicated Asthma persistence: persistent Asthma severity: mild Class 1 obesity E66.811 Labile blood pressure R09.89 Erectile dysfunction due to arterial insufficiency N52.01 Erectile dysfunction type: vasculogenic Vasculogenic erectile dysfunction type: due to arterial insufficiency Assessment & Plan Assessment & Plan (1) HTN (hypertension): Code(s): I10 - Essential (primary) hypertension Category: Medical Qualifiers: Hypertension type: primary hypertension Qualified Code(s): I10 - Essential (primary) hypertension Plan: Regarding the patient's labile hypertension, no changes will be made to his losartan at this time due to his episodes of significant hypotension. To investigate the cause of his blood pressure fluctuations and heat intolerance, labs will be ordered to check thyroid function, prolactin, and catecholamine levels. He will follow up with his assessment clinician on Tuesday to discuss his recent cardiac workup. Thus far workup has been unrevealing with the exception of the coronary artery disease . He also discuss perhaps getting brain imaging to rule out any intracranial lesion/bleed that could be affecting his blood pressure readings. (2) CAD (coronary artery disease): Code(s): I25.10 - Atherosclerotic heart disease of [place] coronary artery without angina pectoris Category: Medical Qualifiers: Associated angina: without angina Coronary Disease-Associated Artery/Lesion type: [place] artery [place] vs. transplanted heart: [place] heart Qualified Code(s): I25.10 - Atherosclerotic heart disease of [place] coronary artery without angina pectoris Plan: patient continues on high dose statin therapy and aspirin. Goal LDL to be optimally below 70 (3) Asthma: Code(s): J45.909 - Unspecified asthma, uncomplicated Category: Medical Qualifiers: Asthma complication type: uncomplicated Asthma persistence: persistent Asthma severity: mild Qualified Code(s): J45.30 - Mild persistent asthma, uncomplicated Plan: Asthma has been well controlled with controlling his allergies. Only has to use his albuterol inhaler on a limited basis. (4) Class 1 obesity: Code(s): E66.811 - Obesity, class 1 Category: Medical Plan: Patient unfortunately did gained weight since last office visit, he does admit to dietary indiscretion as of lately. Patient does understand his BMI is over 30 will work on being more physically active and adapting to better eating habits to reduce his weight (5) Labile blood pressure: Code(s): R09.89 - Other specified symptoms and signs involving the circulatory and respiratory systems Category: Medical Plan: As above (6) Erectile dysfunction: Code(s): N52.9 - Male erectile dysfunction, unspecified Category: Medical Qualifiers: Erectile dysfunction type: vasculogenic Vasculogenic erectile dysfunction type: due to arterial insufficiency Qualified Code(s): N52.01 - Erectile dysfunction due to arterial insufficiency Plan: We had an in-depth conversation regarding his erectile dysfunction. He cannot tolerate a full dose of sildenafil due to side effects, and a half dose is ineffective. I explained that Cialis (tadalafil) is an alternative and that products like BlueChew contain the same active ingredients. We agreed to a trial of tadalafil 10 mg, and I instructed him to start with half a tablet (5 mg) and to not take both medications on the same day. Orders: Orders Catecholamines, Frac., Plasma Today R09.89 - Other specified symptoms and signs involving the circulatory and respiratory systems Prolactin Today R09.89 - Other specified symptoms and signs involving the circulatory and respiratory systems TSH reflex Free T4 Today R09.89 - Other specified symptoms and signs involving the circulatory and respiratory systems Medications: New tadalafil (Cialis) administer approximately 30min before sexual activity; do not use more than 1 dose per 24hrs 10 mg PO DAILY PRN 7 tabs 0RF sexual activity 7 days N52.9 - Male erectile dysfunction, unspecified Refilled atorvastatin 80 mg PO DAILY 90 caps 2RF On Hold sildenafil Hold Comment: Doctor's Order 100 mg PO DAILY 7 days PRN 7 caps 2RF sexual activity N52.9 - Male erectile dysfunction, unspecified
== END 2025-09-11 08:43 | disposition home or self-care (01) ==
LOC: HO.HMCH 07:50
PROVIDERS: PCP Physician Assistant; Visit Provider Physician Assistant
DX: I10 Essential (primary) hypertension (principal); I25.10 Atherosclerotic heart disease of native coronary artery without angina pectoris; E66.811 Obesity, class 1; Z68.33 Body mass index [BMI] 33.0-33.9, adult; J45.30 Mild persistent asthma, uncomplicated; R09.89 Other specified symptoms and signs involving the circulatory and respiratory systems; N52.01 Erectile dysfunction due to arterial insufficiency

== ENCOUNTER → 2025-09-11 07:49 | Outpatient (BNVA) | payer MEDICARE, SELFPAY | PROVIDERS: PCP Physician Assistant; Visit Provider Physician Assistant | DX: I10 Essential (primary) hypertension (principal); I25.10 Atherosclerotic heart disease of native coronary artery without angina pectoris; J45.30 Mild persistent asthma, uncomplicated; E66.811 Obesity, class 1; R09.89 Other specified symptoms and signs involving the circulatory and respiratory systems; N52.01 Erectile dysfunction due to arterial insufficiency | CPT/HCPCS: 99212 ==

== ENCOUNTER 2025-09-16 09:05 | Outpatient (AMB) | payer MEDICARE, SELFPAY ==
--- NOTE | 2025-09-16 09:07 | MHC.OFFVIS ---
Vital Signs 09/16/25 09:08 Height 6 ft 1 in Weight 246 lb 14.684 oz BMI 32.6 BP 154/86 H Blood Pressure Location Lt brachial Position Sitting Pulse 86 Intake Visit Reasons: f/up-duplex, echo,cta Intake Note: Follow-up after us, echo, CTA bp is unstable it can be high and then the next day its so low Process Architect Required: No Allergies cats Allergy (Intermediate, Uncoded 09/11/25 08:11) sneezing, wheezing, SOB dogs Allergy (Intermediate, Uncoded 09/11/25 08:11) Sneezing, wheezing dust Allergy (Intermediate, Uncoded 09/11/25 08:11) sneezing, wheezing enviromental Allergy (Intermediate, Uncoded 09/11/25 08:11) sneezing, wheezing animals Adverse Reaction (Unknown, Uncoded 09/11/25 08:11) cats and dogs Medication List - Last Reconciled 09/16/25 by Isael Torres MD albuterol sulfate 90 mcg/actuation 1 inh inhalation QID 30 days aspirin (Adult Low Dose Aspirin) 81 mg PO DAILY atorvastatin 80 mg PO DAILY losartan 12.5 mg (1/2 x 25 mg) PO DAILY omeprazole 20 mg PO DAILY 90 days tadalafil (Cialis) 10 mg PO DAILY PRN 7 days HPI Comments Details: Robert comes for follow-up. Underwent renal duplex which did not show any evidence of renal artery stenosis. Coronary CTA shows moderate disease in the LAD. He has no symptoms of exertional angina. Denies any orthopnea, PND, leg edema. His LDL is not well optimized in the 90s. However he has main symptom currently continues to be significant orthostatic symptoms with low blood pressure which makes him feel lousy. He says whenever he systolic blood pressures less than 100 he feels weak and tired and not feel well. This happens more frequently in the summertime. He denies any neurologic symptoms. No prolonged palpitation irregular heartbeat. [facility] Medical History Microscopic hematuria Back pain Surgical History Stented coronary artery History of right knee surgery History of dental surgery Family History Father No problems noted. Mother Hepatitis C Brother Colon cancer Sister Rectal polyp Social History Housing: House Alcohol intake: current Alcohol intake frequency: a few times a week Alcohol type: beer and wine Patient Tobacco Use Status: Former Tobacco user Tobacco use type: Cigarette Years Smoked: 30 +/- e-Cigarette/Vaping Use: Never Used Second Hand Smoke Exposure: No service: Yes Current occupational status: retired Cognitive needs: No Hearing needs: No Vision needs: Yes Review of Systems Const Denies chills, Denies fatigue, Denies fever(s), Denies frequent falls, Denies weakness, Denies weight gain and Denies weight loss ENT Denies dizziness Card Denies chest pain, Denies leg edema, Denies lightheadedness, Denies palpitations, Denies dyspnea, Denies dyspnea on exertion, Denies orthopnea and Denies other (loss of consciousness) Resp Denies cough, Denies dyspnea and Denies dyspnea on exertion GI Denies hematochezia and Denies change in stool character Musc Denies abnormal gait, Denies muscle weakness, Denies numbness, Denies radiating pain into limb and Denies tingling Neuro Denies abnormal gait, Denies dizziness, Denies frequent falls, Denies numbness, Denies tingling and Denies weakness Endo Denies fatigue and Denies palpitations Physical Exam Vital Signs: Last Vital Signs Pulse 86 09/16/25 09:08 BP 154/86 H 09/16/25 09:08 BMI result Body Mass Index 32.6 Const General: cooperative, comfortable, no acute distress, alert, awake and Physically active Nutritional Appearance: obese Orientation/consciousness: patient oriented x3 Limitations: no limitations Neck Neck: Yes trachea midline, Yes supple and Yes no JVD Resp Effort & Inspection: normal respiratory effort Auscultation: clear to auscultation bilaterally Cardio Jugular venous distension: no JVD Palpation: normal PMI Rate: regular rate Rhythm: regular rhythm Heart sounds: S1 normal heart sound present, S2 normal heart sound present, no click, no gallops, no murmurs and no rubs GI Auscultation: normal bowel sounds Skin General skin exam: no rashes or lesions noted Neuro General: patient oriented x3 and no focal motor deficits Extrem General: Yes no clubbing, cyanosis or edema Assessment & Plan Assessment & Plan (1) Labile blood pressure: Code(s): R09.89 - Other specified symptoms and signs involving the circulatory and respiratory systems Category: Medical Plan: Significantly labile blood pressure without evidence of renal artery stenosis. Possible explanations include autonomic dysfunction in the setting of diffuse and significant atherosclerotic disease which makes his blood pressure very difficult control. We discussed about management of this condition can be very difficult and mostly palliative as there was no direct treatment for it. Agree with checking plasma metanephrines to rule out any hormonal causes. We discussed about management of this condition in details. Discussed about avoiding standing position when he gets symptomatic in his assuming sitting or supine position as soon as possible. Also discussed about increasing his fluid intake to about 2-2.5 L daily. Also discussed about wearing thigh length compression stockings throughout the day. Also discussed about sleeping in his supine position. Advised to take losartan on days when his blood pressure is normalized in his feeling well. I have also taken the liberty to prescribe him PRN hydralazine 5 mg when in his systolic blood pressures greater than 160. I would avoid using PDE 5 inhibitor therapy. (2) CAD (coronary artery disease): Code(s): I25.10 - Atherosclerotic heart disease of [place] coronary artery without angina pectoris Category: Medical Qualifiers: Coronary Disease-Associated Artery/Lesion type: [place] artery [place] vs. transplanted heart: [place] heart Associated angina: without angina Qualified Code(s): I25.10 - Atherosclerotic heart disease of [place] coronary artery without angina pectoris Plan: CAD with prior stenting with premature atherosclerosis as well as moderately severe disease in the LAD without any symptoms. Continue aggressive risk factor modification. LDL is not well optimized. Recommend to add ezetimibe 10 mg to his regimen and follow-up lipid panel in 8 weeks time. Continue lifelong aspirin therapy. Continue blood pressure control. Reasonable blood pressure systolic would be less than 150. (3) Enlarged thoracic aorta: Code(s): I77.89 - Other specified disorders of arteries and arterioles Category: Medical Plan: Mildly enlarged thoracic aorta which has remained stable. Continue aggressive risk factor modifications above. Follow-up echocardiogram in 1 year's time. Will follow with him in 6 months time, sooner PRN. Thank you for allowing me to partake in his care. Orders: Orders Lipid Panel 2 Months I25.10 - Atherosclerotic heart disease of [place] coronary artery without angina pectoris Medications: New ezetimibe 10 mg PO DAILY 90 tabs 3RF hydralazine 5 mg (1/2 x 10 mg) PO ONCE PRN 30 tabs 3RF Systolic blood pressure greater than 160 Discontinued tadalafil (Cialis) administer approximately 30min before sexual activity; do not use more than 1 dose per 24hrs Discontinued Reason: Doctor's Order 10 mg PO DAILY 7 days PRN 7 tabs 0RF sexual activity N52.9 - Male erectile dysfunction, unspecified Coding Level of Care Code Est Pt Level 4 (80789) Complex EM visit Add On G2211 Diagnoses Labile blood pressure R09.89 Coronary artery disease involving [place] coronary artery of [place] heart without angina pectoris I25.10 Coronary Disease-Associated Artery/Lesion type: [place] artery [place] vs. transplanted heart: [place] heart Associated angina: without angina Enlarged thoracic aorta I77.89
[2025-09-16 09:08] VITALS: BP 154/86; PULSE 86; BMI 32.6
== END 2025-09-16 09:46 | disposition home or self-care (01) ==
LOC: HO.HCS 09:06
PROVIDERS: PCP Physician Assistant; Visit Provider Internal Medicine Cardiovascular Disease
DX: R09.89 Other specified symptoms and signs involving the circulatory and respiratory systems (principal); I25.10 Atherosclerotic heart disease of native coronary artery without angina pectoris; I77.89 Other specified disorders of arteries and arterioles
CPT/HCPCS: 99214; G2211

== ENCOUNTER → 2025-09-16 09:05 | Outpatient (BNVA) | payer MEDICARE, SELFPAY | PROVIDERS: PCP Physician Assistant; Visit Provider Internal Medicine Cardiovascular Disease | DX: R09.89 Other specified symptoms and signs involving the circulatory and respiratory systems (principal); I25.10 Atherosclerotic heart disease of native coronary artery without angina pectoris; I10 Essential (primary) hypertension; I77.89 Other specified disorders of arteries and arterioles; Z95.5 Presence of coronary angioplasty implant and graft | CPT/HCPCS: 99212 ==

== ENCOUNTER 2025-09-30 11:47 | Outpatient (AMB) | payer MEDICARE, SELFPAY | END 2025-09-30 11:48 | disposition home or self-care (01) | LOC: HO.HMGAL 11:47 | PROVIDERS: PCP Physician Assistant; Visit Provider Registered Nurse Emergency | DX: J30.89 Other allergic rhinitis (principal) | CPT/HCPCS: 95117; 95165 ==

== ENCOUNTER 2025-10-07 10:52 | Day surgery (SDC) | payer MEDICARE, SELFPAY ==
--- NOTE | 2025-10-03 10:50 | HO.ANESPROP2 ---
Documented by User: Rachel Schmid NP 10/03/25 10:54 HPI - Anesthesia Eval Consult details Narrative: 65yo M for Colonoscopy Follows [facility] [place] Cardiology. Last office visit 08/2025 Labile BP - no renal artery stenosis. Possible autonomic dysfunction. PRN meds, increase fluid intake, compression socks, position recommendations CAD - prior stenting with premature atherosclerosis as well as moderately severe disease in the LAD without any symptoms . Continue risk factor modifications TAA - mildly enlarged. Follows with ECHO in 1 year [facility] Active Problems Active Problems: All Active Problems Colon polyp (Acute) Medicare annual wellness visit, initial (Acute) Class 1 obesity (Acute) Knee osteoarthritis (Acute) GERD (gastroesophageal reflux disease) (Acute) Enlarged thoracic aorta (Acute) Labile blood pressure (Acute) Episodic lightheadedness (Acute) Erectile dysfunction (Acute) Microscopic hematuria (Acute) Asthma (Acute) Obese (Acute) HTN (hypertension) (Acute) CAD (coronary artery disease) (Acute) Annual physical exam (Acute) Back pain (Acute) Somatic dysfunction of right sacroiliac joint (Acute) Past Medical History Medical History GERD (gastroesophageal reflux disease) Enlarged thoracic aorta Asthma HTN (hypertension) CAD (coronary artery disease) Microscopic hematuria Back pain Family History Family History Father No problems noted. Mother Hepatitis C Brother Colon cancer Sister Rectal polyp Surgical History Surgical History H/O inguinal hernia repair Stented coronary artery History of right knee surgery History of dental surgery Social History Social History Housing: House Alcohol intake: current Alcohol intake frequency: a few times a week Alcohol type: beer and wine Patient Tobacco Use Status: Former Tobacco user Tobacco use type: Cigarette Years Smoked: 30 +/- e-Cigarette/Vaping Use: Never Used Second Hand Smoke Exposure: No Use of substances other than those prescribed or required for medical reasons: No Are you DNR?: No Advance Directives: No Advance Directives Information Provided: Yes service: Yes Current occupational status: retired Cognitive needs: No Hearing needs: No Vision needs: Yes Meds Allergies Allergy/AdvReac Type Severity Reaction Status Date / Time cats Allergy Intermediate sneezing, Uncoded 09/11/25 08:11 wheezing, SOB dogs Allergy Intermediate Sneezing, Uncoded 09/11/25 08:11 wheezing dust Allergy Intermediate sneezing, Uncoded 09/11/25 08:11 wheezing enviromental Allergy Intermediate sneezing, Uncoded 09/11/25 08:11 wheezing animals AdvReac Unknown cats and Uncoded 09/11/25 08:11 dogs Home Medications ?Medication ?Instructions ?Recorded ?Confirmed ?Last Taken ?Type aspirin 81 mg tablet,delayed 81 mg PO BEDTIME 02/22/22 10/07/25 Unknown History release (Adult Low Dose Aspirin) albuterol sulfate 90 mcg/actuation 1 inh inhalation QID PRN sob 10/07/25 10/07/25 Unknown History aerosol inhaler atorvastatin 80 mg tablet 80 mg PO BEDTIME 10/07/25 10/07/25 Unknown History ezetimibe 10 mg tablet 10 mg PO BEDTIME 10/07/25 10/07/25 Unknown History losartan 25 mg tablet 12.5 mg PO DAILY PRN Systolic 10/07/25 10/07/25 Unknown History blood pressure greater than 150 omeprazole 20 mg capsule,delayed 20 mg PO BEDTIME PRN Heartburn 10/07/25 10/07/25 Unknown History release Exam Pertinent Lab Results Pertinent Lab Results: Laboratory Tests 05/02/25 10:53 WBC 5.2 Hgb 14.7 Hct 42.6 Plt Count 166 Sodium 139 Potassium 4.4 Chloride 103 Carbon Dioxide 29 BUN 16 Creatinine 0.96 Narrative Narrative: EKG 04/2025 Details: EKG shows normal sinus rhythm with right bundle-branch block with inferior and inferolateral infarct ECHO 07/2025 Conclusions: - The left ventricular systolic function is normal. The calculated ejection fraction is 63% by biplane method. - The basal inferior segment is hypokinetic. - No obvious valvular pathology seen on this study. - There is mild dilatation of the ascending aorta measuring 4.00 cm. Assessment and Plan Assessment Anesthesia Assessment: Chart Reviewed Documented by User: Andrey Tyson MD 10/07/25 11:58 [facility] Past Medical History Medical History GERD (gastroesophageal reflux disease) Enlarged thoracic aorta Asthma HTN (hypertension) CAD (coronary artery disease) Microscopic hematuria Back pain Functional capacity: independent ambulation Family History Family History Father No problems noted. Mother Hepatitis C Brother Colon cancer Sister Rectal polyp Family history of problems with anesthesia: No Surgical History Surgical History H/O inguinal hernia repair Stented coronary artery History of right knee surgery History of dental surgery History of Problems with Anesthesia: No Social History Social History Housing: House Alcohol intake: current Alcohol intake frequency: a few times a week Alcohol type: beer and wine Patient Tobacco Use Status: Former Tobacco user Tobacco use type: Cigarette Years Smoked: 30 +/- e-Cigarette/Vaping Use: Never Used Second Hand Smoke Exposure: No Use of substances other than those prescribed or required for medical reasons: No Are you DNR?: No Advance Directives: No Advance Directives Information Provided: Yes service: Yes Current occupational status: retired Cognitive needs: No Hearing needs: No Vision needs: Yes Meds Allergies Allergy/AdvReac Type Severity Reaction Status Date / Time cats Allergy Intermediate sneezing, Uncoded 09/11/25 08:11 wheezing, SOB dogs Allergy Intermediate Sneezing, Uncoded 09/11/25 08:11 wheezing dust Allergy Intermediate sneezing, Uncoded 09/11/25 08:11 wheezing enviromental Allergy Intermediate sneezing, Uncoded 09/11/25 08:11 wheezing animals AdvReac Unknown cats and Uncoded 09/11/25 08:11 dogs Home Medications ?Medication ?Instructions ?Recorded ?Confirmed ?Last Taken ?Type aspirin 81 mg tablet,delayed 81 mg PO BEDTIME 02/22/22 10/07/25 Unknown History release (Adult Low Dose Aspirin) albuterol sulfate 90 mcg/actuation 1 inh inhalation QID PRN sob 10/07/25 10/07/25 Unknown History aerosol inhaler atorvastatin 80 mg tablet 80 mg PO BEDTIME 10/07/25 10/07/25 Unknown History ezetimibe 10 mg tablet 10 mg PO BEDTIME 10/07/25 10/07/25 Unknown History losartan 25 mg tablet 12.5 mg PO DAILY PRN Systolic 10/07/25 10/07/25 Unknown History blood pressure greater than 150 omeprazole 20 mg capsule,delayed 20 mg PO BEDTIME PRN Heartburn 10/07/25 10/07/25 Unknown History release Exam Exam Date and Time: 10/07/25 Airway TM Dist: >3cm Loose/Missing/Broken Teeth: No Heart: rrr Lungs: cta Other: normal Assessment and Plan Assessment Anesthesia Assessment: Anesthesia Plan Discussed Final Anesthetic Review Family History of Problems with Anesthesia: No History of Problems with Anesthesia: No NPO: Yes ASA Class: II Final Preanesthetic Review: No Changes in Pt Med Stat, Consent Obtained/Reviewed and Anes Risks/Benef Reviewed Patient Risk: Low Procedure Risk: Low Anesthetic Plan Anesthetic Plan: MAC: Disposition: Standard PACU
[2025-10-07 11:15] VITALS: BMI 33.1
[2025-10-07 11:29] VITALS: BP 200/98; PULSE 79; RESP 16; TEMP 36.3; O2SAT 95
[2025-10-07] MEDS: Lactated Ringers 1,000 ML 100 ML IVCONT (11:38)
[2025-10-07 11:41] VITALS: BP 169/92; PULSE 77
[2025-10-07 13:36] VITALS: BP 110/70; PULSE 65; RESP 18; TEMP 36.7; O2SAT 95
--- NOTE | 2025-10-07 13:37 | P.BOP_ITS ---
Brief Operative Note Date of Service: 10/07/25 Pre-op diagnosis: Screening Post-op diagnosis: other (Polyps) Procedure: Colonoscopy to the cecum and TI with bx/removal of polyps Surgeon: Eduard Shetty MD Anesthesia: MAC Was an [employer] used for this Procedure?: No Estimated blood loss (mL): 2.0 Pathology: other (A. Polyps at 60cm B. Rectal polyps) Condition: stable Disposition: PACU
[2025-10-07 13:40] VITALS: BP 99/51; PULSE 67; RESP 18; O2SAT 95
[2025-10-07 13:51] VITALS: BP 117/65; PULSE 80; RESP 15; O2SAT 93
[2025-10-07 14:00] VITALS: BP 127/79; PULSE 75; RESP 15; TEMP 36.4; O2SAT 95
--- NOTE | 2025-10-07 21:56 | OP_ITS ---
DATE OF SERVICE: 10/07/2025 SURGEON: Eduard Shetty MD INDICATIONS: The patient presents for evaluation of colorectal cancer screening and personal history of colon polyps. Full consent has been obtained from him for this, including risks of bleeding and perforation. PREOPERATIVE DIAGNOSIS: POSTOPERATIVE DIAGNOSIS: PROCEDURE PERFORMED: Colonoscopy to the cecum and terminal ileum with biopsy and removal of polyps. ESTIMATED BLOOD LOSS: COMPLICATIONS: ANESTHESIA: Medication used, monitored anesthesia care. ASSISTANTS: SPECIMENS: PREOPERATIVE DIAGNOSES: Colorectal cancer screening and personal history of colon polyps. POSTOPERATIVE DIAGNOSES: Colorectal cancer screening and personal history of colon polyps, colon polyps, diverticulosis, and internal hemorrhoids. DESCRIPTION OF PROCEDURE: Patient was placed in the left lateral decubitus position. The digital rectal exam revealed no abnormalities. The Olympus video pediatric colonoscope was entered into the rectum and advanced easily to the cecum. Once in the cecum, I did identify normal-appearing cecal pouch with appendiceal orifice and a normal-appearing ileocecal valve. The terminal ileum was cannulated and appeared normal. Scope was withdrawn back in the colon. The entire cecum and ileocecal valve appeared normal. Scope was slowly withdrawn assessing all mucosal surfaces carefully. Preparation was excellent. At 60 cm and in the rectum were multiple less than 5 mm polyps, which were all biopsied and removed with a cold biopsy forceps. I did not visualize any other polyps, colitis, nor angiodysplasia. There was a mild amount of sigmoid diverticulosis. In the rectum, scope was retroflexed visualizing internal hemorrhoids, but no other pathology. The rectal mucosa appeared normal. The scope was straightened and withdrawn from the patient. He tolerated the procedure well and was returned to the recovery area in stable condition. IMPRESSION: 1. Small colon polyps. 2. Diverticulosis. 3. Internal hemorrhoids. PLAN: Given his previous history and today's findings, I would recommend a repeat colonoscopy in 5 years. He will otherwise see me as needed. He was advised to resume his aspirin in 24 hours. Eduard Shetty MD RMSylvia/TRAVISL / [id number]
== END 2025-10-07 15:05 | disposition home or self-care (01) ==
PROVIDERS: PCP Physician Assistant; Visit Provider Internal Medicine
PROC: 0DJD8ZZ Inspection of Lower Intestinal Tract, Via Natural or Artificial Opening Endoscopic (ICD-10-PCS; CPT 45378; principal; 2025-10-07 12:40)
DX: Z12.11 Encounter for screening for malignant neoplasm of colon (principal); Z80.0 Family history of malignant neoplasm of digestive organs; Z86.0101 Personal history of adenomatous and serrated colon polyps; K57.30 Diverticulosis of large intestine without perforation or abscess without bleeding; K64.8 Other hemorrhoids; D12.4 Benign neoplasm of descending colon; K63.5 Polyp of colon
CPT/HCPCS: 45380; 88305; J2003; J2704